=== PATIENT | male | born 1945 | race Caucasian/White ===

== ENCOUNTER 2023-04-20 12:41 | Outpatient (CLI) | payer MEDICARE, OTHER, SELFPAY ==
[2023-04-20 13:12] VITALS: BP 161/70; PULSE 72; RESP 14; TEMP 36.6; O2SAT 99
[2023-04-20] MEDS: SODIUM CHLORIDE 0.9% IVPB (13:30)
[2023-04-20] MEDS: ZOLEDRONIC ACID IVPB (13:30)
[2023-04-20] MEDS: LEUPROLIDE ACETATE (ELIGARD) 22.5 MG SYRINGE SUB-Q (13:37)
--- NOTE | 2023-04-20 13:53 | PC.NURSE ---
Patient here for q 3 months Reclast and Lupron. Saw oncologist Glenn 04/18/23 in [place]-labs done there and reviewed and ok'd. Education given. Reclast infusion and Lupron injection administered. Tolerated well. Safe exit of hospital per self/ambulatory. Will return 2022 after see oncologist and labs done.
== END 2023-04-20 12:42 | disposition home or self-care (01) ==
LOC: CHSTREATRM 12:44
PROVIDERS: PCP Family Medicine; Visit Provider Internal Medicine Hematology
DX: Z51.11 Encounter for antineoplastic chemotherapy (principal); C61 Malignant neoplasm of prostate
CPT/HCPCS: 96374; 96401; J3489; J9217

== ENCOUNTER 2023-08-02 13:53 | Outpatient (CLI) | payer MEDICARE, OTHER, SELFPAY ==
[2023-08-02 14:21] LABS: Basophils Absolute Auto 0.05 K/mm3 (0.00-0.10); Basophils Percent Auto 0.7 % (0.0-1.0); Eosinophils Absolute Auto 0.45 K/mm3 (0.02-0.50); Eosinophils Percent Auto 6.6 % (1.0-6.0); Hematocrit 40.9 % (37.0-46.0); Immature Granulocyte Absolute 0.07 K/mm3 (0.00-0.00); Lymphocytes Absolute Auto 1.44 K/mm3 (1.10-4.50); Lymphocytes Percent Auto 21.1 % (18.0-42.0); Mean Corpuscular HGB Conc 31.8 g/dL (32.0-36.0); Mean Corpuscular Hemoglobin 26.6 pg (27.0-31.0); Mean Corpuscular Volume 83.6 fL (78.0-102.0); Mean Platelet Volume 8.8 fl (8.7-11.0); Monocytes Absolute Auto 0.54 K/mm3 (0.10-0.90); Monocytes Percent Auto 7.9 % (2.0-11.0); Neutrophils Absolute Auto 4.3 K/mm3 (1.7-7.2); Neutrophils Percent Auto 62.7 % (50.0-70.0); Platelet Count Result 243 K/mm3 (150-420); Red Blood Count 4.89 M/mm3 (4.70-6.10); Red Cell Distribution Width 16.4 % (11.6-14.4); White Blood Count 6.8 K/mm3 (4.8-10.8)
[2023-08-02 14:22] VITALS: BP 153/71; PULSE 72; RESP 14; TEMP 36.6; O2SAT 97; BMI 27.0
[2023-08-02 14:31] LABS: Estimated CRCL calculation 51 ml/min; Estimated Glomerular Filt Rate > 60
[2023-08-02] MEDS: ZOLEDRONIC ACID IVPB (15:05)
[2023-08-02] MEDS: SODIUM CHLORIDE 0.9% IVPB (15:05)
[2023-08-02 15:10] LABS: Alanine Aminotransferase 15 U/L (16-63); Alkaline Phosphatase 65 U/L (46-116); Anion Gap 8 mmol/L (8-16); Aspartate Amino Transferase < 10 U/L (15-37); Bilirubin,Total 0.3 mg/dL (0.00-1.00); Blood Urea Nitrogen 16 mg/dL (7-18); Calcium 9.3 mg/dL (8.5-10.1); Carbon Dioxide 29 mmol/L (21-32); Chloride 102 mmol/L (98-108); Estimated CRCL calculation 52 ml/min; Estimated Glomerular Filt Rate > 60; Ferritin 93 ng/mL (26-388); Glucose 106 mg/dL (70-99); Iron 57 ug/dL (65-175); Osmolality Calculated 289 mOsm/kg (285-295); Percent Iron Saturation 15 % (12-57); Potassium 4.5 mmol/L (3.5-5.1); Sodium 139 mmol/L (136-145); Total Protein 7.3 g/dL (6.4-8.2)
[2023-08-02 15:11] LABS: Prostate Specific Antigen < 0.1 ng/mL (< OR = 4.0)
[2023-08-02] MEDS: LEUPROLIDE ACETATE (ELIGARD) 22.5 MG SYRINGE SUB-Q (15:13)
--- NOTE | 2023-08-02 15:28 | PC.NURSE ---
Patient here for Eligard injection and Zoledronic acid IV infusion. Labs reviewed and ok'd. Zoledronic infusion dosed on creatinine clearance. Injection and infusion administered. SEE MAR. Tolerated well. Safe exit of hospital per self/ambulatory. Will return 11/01/23 at 1300 for next injection/infusion.
[2023-08-06 12:59] LABS: Testosterone Free 2.4 pg/mL (30.0-135.0); Testosterone Total 16 ng/dL (250-1100)
== END 2023-08-02 13:54 | disposition home or self-care (01) ==
PROVIDERS: PCP Family Medicine; Visit Provider Internal Medicine Hematology
DX: Z51.11 Encounter for antineoplastic chemotherapy (principal); C61 Malignant neoplasm of prostate
CPT/HCPCS: 36415; 80053; 82728; 83540; 83550; 84153; 84402; 84403; 85025; 96365; 96402; J3489; J9217

== ENCOUNTER 2023-11-01 12:03 | Outpatient (CLI) | payer MEDICARE, OTHER, SELFPAY ==
[2023-11-01 12:31] LABS: Basophils Absolute Auto 0.07 K/mm3 (0.00-0.10); Basophils Percent Auto 0.7 % (0.0-1.0); Eosinophils Absolute Auto 0.64 K/mm3 (0.02-0.50); Eosinophils Percent Auto 6.8 % (1.0-6.0); Hematocrit 38.4 % (37.0-46.0); Hemoglobin 12.4 g/dL (12.4-15.3); Immature Granulocyte Absolute 0.16 K/mm3 (0.00-0.00); Immature Granulocyte Percent A 1.7 % (0.0-0.0); Lymphocytes Percent Auto 15.9 % (18.0-42.0); Mean Corpuscular HGB Conc 32.3 g/dL (32-36); Mean Corpuscular Hemoglobin 26.8 pg (27.0-31.0); Mean Corpuscular Volume 82.9 fL (78.0-102.0); Mean Platelet Volume 8.4 fl (8.7-11.0); Monocytes Absolute Auto 0.81 K/mm3 (0.10-0.90); Monocytes Percent Auto 8.6 % (2.0-11.0); Neutrophils Absolute Auto 6.24 K/mm3 (1.70-7.20); Neutrophils Percent Auto 66.3 % (50.0-70.0); Platelet Count Result 261 K/mm3 (150-420); Red Blood Count 4.63 M/mm3 (4.70-6.10); White Blood Count 9.4 K/mm3 (4.8-10.8)
[2023-11-01 12:47] VITALS: BP 100/59; PULSE 80; RESP 16; TEMP 36.6; O2SAT 97; BMI 25.7
[2023-11-01 13:04] LABS: Alanine Aminotransferase 13 U/L (16-63); Albumin Level 3.5 g/dL (3.4-5.0); Alkaline Phosphatase 95 U/L (46-116); Anion Gap 11 mmol/L (8-16); Aspartate Amino Transferase < 10 U/L (15-37); Bilirubin,Total 0.6 mg/dL (0.00-1.00); Blood Urea Nitrogen 18 mg/dL (7-18); Calcium 9.5 mg/dL (8.5-10.1); Carbon Dioxide 26 mmol/L (21-32); Chloride 104 mmol/L (98-108); Estimated CRCL calculation 40 ml/min; Estimated Glomerular Filt Rate 48; Glucose 123 mg/dL (70-99); Osmolality Calculated 294 mOsm/kg (285-295); Potassium 5.1 mmol/L (3.5-5.1); Sodium 141 mmol/L (136-145); Total Protein 7.3 g/dL (6.4-8.2)
[2023-11-01 13:15] LABS: Prostate Specific Antigen < 0.1 ng/mL (< OR = 4.0)
[2023-11-01] MEDS: SODIUM CHLORIDE 0.9% IVPB (13:20)
[2023-11-01] MEDS: ZOLEDRONIC ACID IVPB (13:20)
[2023-11-01] MEDS: LEUPROLIDE ACETATE (ELIGARD) 22.5 MG SYRINGE SUB-Q (13:29)
--- NOTE | 2023-11-01 13:56 | PC.NURSE ---
Patient here for q 3 month Leuprolide injection and Zoledronic acid infusion. Just came from seeing Dr. Kelly-oncologist. No concerns voice. Injection and infusion administered. See MAR. Tolerated well. Will return February 01, 2024 at 1300 for next infusion and injection. Will see Dr. Kelly prior. Safe exit of hospital per self ambulatory.
== END 2023-11-01 13:55 | disposition home or self-care (01) ==
LOC: CHSTREATRM 12:06
PROVIDERS: PCP Family Medicine; Visit Provider Internal Medicine Hematology
DX: Z51.11 Encounter for antineoplastic chemotherapy (principal); C61 Malignant neoplasm of prostate
CPT/HCPCS: 36415; 80053; 84153; 85025; 96374; 96402; J3489; J9217

== ENCOUNTER 2024-01-17 10:52 | Outpatient (CLI) | payer MEDICARE, SELFPAY ==
[2024-01-17 12:28] LABS: Cholesterol 153 mg/dL (0-200); Estimated Glomerular Filt Rate 54; HDL Direct 40 mg/dL (40-60); LDL Cholesterol Calculated 85 mg/dL (<130); Triglycerides 138 mg/dL (0-150)
[2024-01-17 12:29] LABS: Prostate Specific Antigen < 0.1 ng/mL (< OR = 4.0)
== END 2024-01-17 10:53 | disposition home or self-care (01) ==
LOC: CHSLAB 10:58
PROVIDERS: PCP Family Medicine; Visit Provider Internal Medicine Hematology
DX: Z12.5 Encounter for screening for malignant neoplasm of prostate (principal); C61 Malignant neoplasm of prostate; R73.01 Impaired fasting glucose; Z13.6 Encounter for screening for cardiovascular disorders
CPT/HCPCS: 36415; 80061; 82565; 83036; 84153

== ENCOUNTER 2024-01-31 09:45 | Outpatient (CLI) | payer MEDICARE, OTHER, SELFPAY ==
--- NOTE | 2024-01-31 09:55 | PC.NURSE ---
Here for infusion
[2024-01-31 10:17] LABS: Estimated Glomerular Filt Rate > 60
[2024-01-31 10:20] VITALS: BP 147/74; PULSE 76; RESP 18; TEMP 36.1
[2024-01-31 10:21] VITALS: BMI 24.6
--- NOTE | 2024-01-31 10:22 | PC.NURSE ---
creatinine reported to pharmacy for dosing 1.10
[2024-01-31] MEDS: SODIUM CHLORIDE 0.9% IVPB (10:54)
[2024-01-31] MEDS: ZOLEDRONIC ACID IVPB (10:54)
[2024-01-31] MEDS: LEUPROLIDE ACETATE (ELIGARD) 22.5 MG SYRINGE SUB-Q (11:03)
[2024-01-31 11:20] VITALS: BP 165/80; PULSE 78
--- NOTE | 2024-01-31 11:30 | PC.NURSE ---
discharged to home, discharge papers reviewed, no questions
== END 2024-01-31 09:46 | disposition home or self-care (01) ==
PROVIDERS: PCP Family Medicine; Visit Provider Internal Medicine Hematology
DX: Z51.11 Encounter for antineoplastic chemotherapy (principal); C61 Malignant neoplasm of prostate
CPT/HCPCS: 36415; 82565; 96365; 96402; J3489; J9217

== ENCOUNTER 2024-05-01 12:56 | Outpatient (CLI) | payer MEDICARE, OTHER, SELFPAY ==
[2024-05-01 13:22] LABS: Estimated Glomerular Filt Rate > 60
[2024-05-01 13:43] VITALS: BP 129/77; PULSE 68; RESP 16; TEMP 36.6; O2SAT 97
[2024-05-01 13:51] LABS: Prostate Specific Antigen < 0.1 ng/mL (< OR = 4.0)
[2024-05-01] MEDS: LEUPROLIDE ACETATE (ELIGARD) 22.5 MG SYRINGE SUB-Q (14:33)
[2024-05-01] MEDS: SODIUM CHLORIDE 0.9% IVPB (14:34)
[2024-05-01] MEDS: ZOLEDRONIC ACID IVPB (14:34)
--- NOTE | 2024-05-01 15:12 | PC.NURSE ---
Patient here for every 3 months leuprolide injection and Zoledronic acid infusion. Education given. All concerns voiced answered. Medication administered. SEE MAR/patient care notes. Tolerated well.
[2024-05-01 15:15] VITALS: BP 121/74; PULSE 72; RESP 14; O2SAT 97
[2024-05-01 15:30] LABS: Iron 59 ug/dL (65-175); Percent Iron Saturation 20 % (12-57)
== END 2024-05-01 12:57 | disposition home or self-care (01) ==
PROVIDERS: PCP Family Medicine; Visit Provider Internal Medicine Hematology
DX: Z51.11 Encounter for antineoplastic chemotherapy (principal); C61 Malignant neoplasm of prostate
CPT/HCPCS: 36415; 82565; 83540; 83550; 84153; 96374; 96402; J3489; J9217

== ENCOUNTER 2024-08-05 12:52 | Outpatient (CLI) | payer MEDICARE, OTHER, SELFPAY ==
[2024-08-05 13:25] VITALS: BMI 25.1
[2024-08-05 13:29] VITALS: BP 121/66; PULSE 77; RESP 18; TEMP 36.5; O2SAT 98
[2024-08-05 13:44] LABS: Estimated CRCL calculation 58 ml/min; Estimated Glomerular Filt Rate > 60
[2024-08-05 13:56] LABS: Prostate Specific Antigen < 0.1 ng/mL (< OR = 4.0)
[2024-08-05] MEDS: ZOLEDRONIC ACID IVPB (14:25)
[2024-08-05] MEDS: SODIUM CHLORIDE 0.9% IVPB (14:25)
--- NOTE | 2024-08-05 14:45 | PC.NURSE ---
Patient tolerated infusion well. Denies any questions or needs at this time. Left floor ambulatory. IV site removed, tip intact. Dressing applied to site.
== END 2024-08-05 14:45 | disposition home or self-care (01) ==
PROVIDERS: PCP Family Medicine; Visit Provider Internal Medicine Hematology
DX: C61 Malignant neoplasm of prostate (principal)
CPT/HCPCS: 36415; 82565; 84153; 96374; J3489

== ENCOUNTER 2024-10-30 13:05 | Outpatient (CLI) | payer MEDICARE, OTHER, SELFPAY ==
[2024-10-30 13:49] LABS: Estimated Glomerular Filt Rate > 60
[2024-10-30 13:50] LABS: Prostate Specific Antigen < 0.1 ng/mL (< OR = 4.0)
[2024-10-30 14:35] VITALS: BP 132/80; PULSE 68; RESP 14; TEMP 36.7; O2SAT 97; BMI 25.1
[2024-10-30] MEDS: SODIUM CHLORIDE 0.9% IVPB (14:35)
[2024-10-30] MEDS: ZOLEDRONIC ACID IVPB (14:35)
--- OUTSIDE RECORDS SUMMARY | 2024-10-30 14:35 | XMS_ITS | Clinical Summary ---
Author Organization [facility] Address [facility] [place] [address] Care Team Providers Care Coil Wrapper Name Role Phone Alexandre Guzmán MD Primary Care Provider Lesli Paz MD Unavailable Stanley Yen MD Unavailable [phone] Indio Alicea MD Unavailable [phone] Kenzie Cadena MD Unavailable Allergies No known active allergies Medications rosuvastatin 40 MG tablet Take 1 tablet (40 mg total) by mouth nightly at bedtime. Active aspirin 81 MG chewable tablet Chew 1 tablet (81 mg total) by mouth daily. Active enzalutamide (XTANDI) 80 MG tablet Take 2 tablets by mouth daily. Active carvedilol (COREG) 3.125 MG tablet Take 1 tablet (3.125 mg total) by mouth 2 (two) times daily. 60 tablet 11 3 Active nitroglycerin (NITROSTAT) 0.[address] 1 tablet (0.4 mg total) under the tongue every 5 (five) minutes as needed for Chest Pain. Not to exceed 3 tablets. 25 tablet 4 Active clopidogrel (PLAVIX) 75 MG tablet take 1 tablet by mouth every day 90 tablet 3 4 Active Additional Information Patient taking differently: On hold for surgery , Reported on 08/26/2024 venlafaxine XR (EFFEXOR-XR) 37.5 MG 24 hr capsule Take 1 capsule (37.5 mg total) by mouth daily. Active leuprolide acetate, 3 Month, (LUPRON DEPOT, 3-MONTH,) 22.5 MG injection Inject 22.5 mg into the muscle every 3 (three) months. Active pantoprazole EC (PROTONIX) 40 MG tablet Take 1 tablet (40 mg total) by mouth daily. 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 Unstable angina ([facility]) 05/02/2021 Prostate cancer ([facility]) 12/16/2019 Paroxysmal atrial fibrillation ([facility]) 12/04/2019 S/P atrioventricular lance ablation 07/03/2019 New onset atrial fibrillation ([facility]) 05/29/2019 Dizziness 01/16/2019 CAD (coronary artery disease) 01/16/2019 Hypertension, unspecified type 01/16/2019 Hyperlipidemia 01/16/2019 Resolved Problems Problem Noted Date Diagnosed Date Resolved Date Preoperative clearance 12/04/201904/24 Encounters Date Type Department Care Team Description 08/26/2024 8:45 AM [facility] [place] [address] Lesli Paz MD Heart Problem 08/26/2024 8:29 AM MEDICAL SALES CONSULTANT - 08/26/2024 11:59 PM [facility] Hospital Encounter [facility] [address] [place] [address] [place] [address] Lesli Paz MD Discharge Disposition: Home or Self Care (Routine Discharge) 08/26/2024 Travel 08/23/2024 Orders Only [facility] [address] [place] [address] Lesli Paz MD 08/21/2024 9:00 AM MEDICAL SALES CONSULTANT - 08/21/2024 11:59 PM [facility] [facility] [place] [address] Lesli Paz MD Discharge Disposition: Home or Self Care (Routine Discharge) 08/21/2024 Travel from Last 3 Months Immunizations Name Administration Dates Next Due Afluria 36 MONTHS+ (Prefille d Syringe IIV4) 07/04/2019 Fluzone 6 Months+ Quad (0.5 mL Prefilled Syringe) 05/03/2021,05/02/2021(Deferred: Other - to be given upon discharge) Pneumococcal (Pneumovax 23) 05/03/2021 Family History Medical History Relation Comments Cancer Father Stroke Mother Relation Status Comments Father (Age 86) Mother (Age 82) Social History Tobacco Use Types Packs/Day Years Used Date Smoking Tobacco: Never Smokeless Tobacco: Never Alcohol Use Standard Drinks/Week Comments No 0 (1 standard drink = 0.6 oz pur e alcohol) Humiliation, Afraid, Rape, and Kick questionnair e Answer Date Recorded Within the last year, have y ou been afraid of your partner or ex-partner? No 03/22/2023 Within the last year, have y ou been humiliated or emotionally abused in other ways by your partner or ex-partner? No Within the last year, have y ou been kicked, hit, slapped, or otherwise physically hurt by your partner or ex-partner? No 03/22/2023 Within the last year, have y ou been raped or forced to have any kind of sexual activity by your partner or ex-partner? No 03/22/2023 AUDIT-C Answer Date Recorded Frequency of Alcohol Consumption Never 05/21/2018 Average Number of Drinks Not on file 018 Frequency of Binge Drinking Not on file 03/2018 Overall Financial Resource Strain (CARDIA) Answe r Date Recorded How hard is it for you to pa y for the very basics like food, housing, medical care, and heating? Not hard at all 03/22/2023 Hunger Vital Sign Answer Date Recorded Within the past 12 months, y ou worried that your food would run out before you got the money to buy more. Never true 03/22/20 23 Within the past 12 months, t he food you bought just didn't last and you didn't have money to get more. Never true 03/22/2023 PRAPARE - Transportation Answer Date Re corded In the past 12 months, has l ack of transportation kept you from medical appointments or from getting medications? No 04/2023 In the past 12 months, has l ack of transportation kept you from meetings, work, or from getting things needed for daily living? No 03/22/2023 Housing Stability Vital Sign Answer Mann e Recorded In the last 12 months, was t here a time when you were not able to pay the mortgage or rent on time? No 03/22/2023 In the last 12 months, how many places have you lived? 1 03/22/2023 In the last 12 months, was t here a time when you did not have a steady place to sleep or slept in a assisted (including now)? No 03/22/2023 Sex and Gender Information Value Date Recorded Sex Assigned at Male 08/30/2024 4:08 PM MEDICAL SALES CONSULTANT Legal Sex Male 2:22 PM CDT Gender Identity Not on file Sexual Orientation Not on file Occupation Industry Job Start Date Job End Date Not on file Not on file Not on file Not on file Last Filed Vital Signs Vital Sign Reading Time Taken Comments Blood Pressure 134/70 08/26/2024 9:54 AM MEDICAL SALES CONSULTANT Pulse 78 08/26/2024 9:53 AM MEDICAL SALES CONSULTANT Temperature 36 C (96.8 F) 02/14/2024 5:28 PM CDT Respiratory Rate 16 08/26/2024 9:53 AM MEDICAL SALES CONSULTANT Oxygen Saturation 97% 02/14/2024 5:28 PM CDT Inhaled Oxygen Concentration - - Weight 81.6 kg (180 lb) 08/26/2024 9:53 AM MEDICAL SALES CONSULTANT Height 177.8 cm (5' 10 ) 08/26/2024 9:53 AM MEDICAL SALES CONSULTANT Body Mass Index 25.83 08/26/2024 9:53 AM MEDICAL SALES CONSULTANT Plan of Treatment Upcoming Encounters Date Type Department Care Team (Late st Contact Info) Description 08/20/2025 9:00 AM MEDICAL SALES CONSULTANT [facility]ointment [facility] [address] [place] [address] Lesli Paz MD [address] [place], [place] [id number] 08/20/2025 10:00 AM MEDICAL SALES CONSULTANT [facility]ointment [facility] [address] [place] [address] Lesli Paz MD [address] [place] [address] 08/25/2025 9:00 AM MEDICAL SALES CONSULTANT Office Visit [facility] [place] [phone] Lesli Paz MD [address] [place] [address] Health Maintenance Due Date Last Done Comments ASCVD Statin 1945 Hepatitis C 1964 DTaP, Tdap and Td Vaccines (1 - Tdap) 1965 Zoster Vaccines (1 of 2) 1996 Annual Medicare Wellness Visit 2011 RSV Immunization or 60+ Years (1 - 1-dose 75+ series) 2021 Pneumococcal Vaccine: 65+ Years (2 of 2 - PCV) 05/03/2022 05/03/2021 ASCVD LDL 03/26/2024 03/26/2023, 04/14, 02/05/2021, Additional history exists COVID-19 Vaccine ( season) 2024 05/28/2021, 10/23/2020, 10/02/2020 Influenza Adult (#1) 2024 05/03/2021, 07/04/2019, 05/28/2018 Colorectal Cancer Screening Colonoscopy (10 Years) Discontinued 08/24/2021, 08/24/2021 Meningococcal B Vaccine Aged Out No l onger eligible based on patient's age to complete this topic Meningococcal Vaccine Aged Out No isma morelia eligible based on patient's age to complete this topic RSV Immunizations Under 20 Months Aged Out No longer eligible based on patient's age to complete this topic Goals Goal Patient Goal Type Associated Problems Recent Progress Patient-Stated? Author Safety Patient/family will have appropriate support at home upon discharge Lifestyle No Razia Carmona RN Medical Devices Implanted Type Area Environmental Programs Manager Device Identifier Shelf Expiration Date Model / Serial / Lot Balloon Ams Pressure Regulating 61-70cm - [id number] Implanted:Qty: 1 on 02/14/2024 by Kenzie Cadena MD at [facility] Balloon Implant N/A: Pelvis [employer] [id number] 01/02/2029 [id number] / / [id number] Cuff Urethral Ams 800 Occlusive Urinary Control System Inhibizone Silicone Elastomer 4cm Sphincter Sterile - [id number] Implanted:Qty: 1 on 02/14/2024 by Kenzie Cadena MD at [facility] Penile N/A: Urethra [employer] [id number] 10/24/2025 [id number] / / [id number] Pump Control With Iz Ams 800 - [id number] Implanted:Qty: 1 on 02/14/2024 by Kenzie Cadena MD at [facility] Penile N/A: Scrotum [employer] [id number] 12/28/2025 [id number] / / [id number] Kit Accessory Ams 800 - [id number] Implanted:Qty: 1 on 02/14/2024 by Kenzie Cadena MD at [facility] Penile N/A: Abdomen [employer] [id number] 01/17/2029 [id number] / / [id number] Tissue Surgiflo 8ml - Sn/A Implanted:Qty: 1 on 12/16/2019 by Manasa Mendoza MD at [facility] N/A: Prostate [employer] 03/13/2021 [id number] / N/A / [id number] Procedures Procedure Name Priority Date/Time Associated Diagnosis Comments ECG 12-LEAD Routine 08/26/2024 8:35 AM MEDICAL SALES CONSULTANT Coronary artery disease involving [place] coronary artery of [place] heart with unstable angina pectoris ([facility]) USV CAROTID DUPLEX CORRIE Routine 08/21/2024 10:56 AM MEDICAL SALES CONSULTANT Bilateral carotid artery stenosis LIPID PANEL Routine 03/26/2023 8:13 AM CDT COLONOSCOPY 08/24/2021 8:49 AM MEDICAL SALES CONSULTANT from Last 3 Months or Most Recently Relevant to Health Maintenance Results * ECG 12 lead (HOSPITAL PERFORMED ONLY) (08/26/2024 8:35 AM MEDICAL SALES CONSULTANT) 08/26/2024 8:35 AM MEDICAL SALES CONSULTANT Narrative [facility] - 08/26/2024 6:20 PM MEDICAL SALES CONSULTANT [address] [place] [address] Test Date: 2024-08-26 Pat Name: PEPE BALLOX Department: 3 Room: Gender: Male Curator: : 1945 Requested By: LESLI PAZ Order Number: [id number] Reading MD: Lesli Paz Measurements Intervals [place] Rate: 74 P: 4 DE: 182 QRS: 44 QRSD: 111 T: 0 QT: 426 QTc: 475 Interpretive Statements SINUS RHYTHM INCOMPLETE RIGHT BUNDLE BRANCH BLOCK [90+ ms QRS DURATION, TERMINAL R IN V1/V2, 40+ ms S IN I/aVL/V4/V5/V6] VOLTAGE CRITERIA FOR LVH [MEETS CRITERIA IN ONE OF: R(aVL), S(V1), R(V5), R(V5/V6)+S(V1)] INFERIOR MYOCARDIAL INFARCTION , PROBABLY OLD [40+ ms Q WAVE AND/OR ST/T ABNORMALITY IN II/aVF] CAL SALES CONSULTANT Procedure Note Lesli Paz MD - 08/26/[address] [place] [address] Test Date: 2024-08-26 Pat Name: PEPE BALLOX Department: 3 Room: Gender: Male Curator: : 1945 Requested By: LESLI PAZ Order Number: [id number] Reading MD: Lesli Paz Measurements Intervals [place] Rate: 74 P: 4 DE: 182 QRS: 44 QRSD: 111 T: 0 QT: 426 QTc: 475 Interpretive Statements SINUS RHYTHM INCOMPLETE RIGHT BUNDLE BRANCH BLOCK [90+ ms QRS DURATION, TERMINAL RIN V1/V2, 40+ ms S IN I/aVL/V4/V5/V6] VOLTAGE CRITERIA FOR LVH [MEETS CRITERIA IN ONE OF: R(aVL), S(V1),R(V5), R(V5/V6)+S(V1)] INFERIOR MYOCARDIAL INFARCTION , PROBABLY OLD [40+ ms Q WAVE AND/OR ST/T ABNORMALITY IN II/aVF] CAL SALES CONSULTANT us Lesli Paz MD ECG ORDERABLES Final Result [facility] * USV CAROTID DUPLEX CORRIE (08/21/2024 10:56 AM MEDICAL SALES CONSULTANT) Anatomical Region Laterality Modality Neck Ultrasound 08/21/2024 9:14 AM MEDICAL SALES CONSULTANT Narrative 08/21/2024 5:29 PM MEDICAL SALES CONSULTANT Outreach Carotid Ultrasound Vascular Report Pat.Name: Pepe Gaines Pat.ID: [id number] St.Date: 08/21/2024 Refer.MD: Sarah, [facility] Exam Time: 9:14:00 AM Study Type:OUTREACH CAROTID SCAN BILATERAL Height: 70 in Age: 1 1945,78Y Sex: M Sonogrphr: Am Pat. Stat.:Outpatient Reason for Study:Bilateral carotid artery stenosis Procedures: Study performed at [place], [place] and interpreted by [facility]. ++++++++++++++++++++++++++++++++++++ FINDINGS: ++++++++++++++++++++++++++++++++++++ Rt ICA: 0-39% stenosis with plaque noted in the internal carotid artery. Moderate homogeneous plaque noted. Rt ECA: Patent with antegrade flow noted in the external carotid artery. Rt Vert: Normal antegrade vertebral flow. Lt ICA: 40-59% stenosis noted in the internal carotid artery. Moderate homogeneous plaque noted. Lt ECA: Patent with antegrade flow noted in the external carotid artery. Lt Vert: Normal antegrade vertebral flow. ++++++++++++++++++++++++++++++++++++ MEASUREMENTS: ++++++++++++++++++++++++++++++++++++ DOPPLER Right Prox CCA Prox CCA PSV 88 cm/s Prox CCA EDV 13 cm/s Right Dist CCA Dist CCA PSV 77 cm/s Dist CCA EDV 12 cm/s Right Prox ICA Prox ICA PSV 101 cm/s Prox ICA EDV 28 cm/s Right Mid ICA Mid ICA PSV 76 cm/s Mid ICA EDV 19 cm/s Right Dist ICA Dist ICA PSV 97 cm/s Dist ICA EDV 28 cm/s Right Prox ECA Prox ECA PSV 60 cm/s Right Bifurcation Bifurcation PSV 62 cm/s Bifurcation EDV 13 cm/s Right Vertebral Vertebral PSV 61 cm/s Vertebral EDV 17 cm/s Right ICA/CCA RATIO ICA/CCA RATIO P 1.31 Left Prox CCA Prox CCA PSV 97 cm/s Prox CCA EDV 13 cm/s Left Dist CCA Dist CCA PSV 77 cm/s Dist CCA EDV 17 cm/s Left Prox ICA Prox ICA PSV 86 cm/s Prox ICA EDV 22 cm/s Left Mid ICA Mid ICA PSV 120 cm/s Mid ICA EDV 34 cm/s Left Dist ICA Dist ICA PSV 83 cm/s Dist ICA EDV 26 cm/s Left Prox ECA Prox ECA PSV 98 cm/s Left Bifurcation Bifurcation PSV 83 cm/s Bifurcation EDV 18 cm/s Left Vertebral Vertebral PSV 27 cm/s Vertebral EDV 10 cm/s Left ICA/CCA RATIO ICA/CCA RATIO P 1.56 <Electronic Signature> 08/21/2024 05:29 PM Lesli Paz M.D. Procedure Note Lesli Paz MD - 08/21/2024 Outreach Carotid Ultrasound Vascular Report Pat.Name: Pepe Gaines Pat.ID: [id number] .Date: 08/21/2024 Refer.MD: Sarah, [facility] Exam Time: 9:14:00 AM Study Type:OUTREACH CAROTID SCAN BILATERAL Height: 70 in Age: 1 1945,78Y Sex: M Sonogrphr: Am Pat. Stat.:Outpatient Reason for Study:Bilateral carotid artery stenosis Procedures: Study performed at [facility], [place], [place] and interpreted by [facility]. ++++++++++++++++++++++++++++++++++++ FINDINGS: ++++++++++++++++++++++++++++++++++++ Rt ICA: 0-39% stenosis with plaque noted in the internal carotid artery. Moderate homogeneous plaque noted. Rt ECA: Patent with antegrade flow noted in the external carotid artery. Rt Vert: Normal antegrade vertebral flow. Lt ICA: 40-59% stenosis noted in the internal carotid artery. Moderate homogeneous plaque noted. Lt ECA: Patent with antegrade flow noted in the external carotid artery. Lt Vert: Normal antegrade vertebral flow. ++++++++++++++++++++++++++++++++++++ MEASUREMENTS: ++++++++++++++++++++++++++++++++++++ DOPPLER Right Prox CCA Prox CCA PSV 88 cm/s Prox CCA EDV 13 cm/s Right Dist CCA Dist CCA PSV 77 cm/s Dist CCA EDV 12 cm/s Right Prox ICA Prox ICA PSV 101 cm/s Prox ICA EDV 28 cm/s Right Mid ICA Mid ICA PSV 76 cm/s Mid ICA EDV 19 cm/s Right Dist ICA Dist ICA PSV 97 cm/s Dist ICA EDV 28 cm/s Right Prox ECA Prox ECA PSV 60 cm/s Right Bifurcation Bifurcation PSV 62 cm/s Bifurcation EDV 13 cm/s Right Vertebral Vertebral PSV 61 cm/s Vertebral EDV 17 cm/s Right ICA/CCA RATIO ICA/CCA RATIO P 1.31 Left Prox CCA Prox CCA PSV 97 cm/s Prox CCA EDV 13 cm/s Left Dist CCA Dist CCA PSV 77 cm/s Dist CCA EDV 17 cm/s Left Prox ICA Prox ICA PSV 86 cm/s Prox ICA EDV 22 cm/s Left Mid ICA Mid ICA PSV 120 cm/s Mid ICA EDV 34 cm/s Left Dist ICA Dist ICA PSV 83 cm/s Dist ICA EDV 26 cm/s Left Prox ECA Prox ECA PSV 98 cm/s Left Bifurcation Bifurcation PSV 83 cm/s Bifurcation EDV 18 cm/s Left Vertebral Vertebral PSV 27 cm/s Vertebral EDV 10 cm/s Left ICA/CCA RATIO ICA/CCA RATIO P 1.56 <Electronic Signature> 08/21/2024 05:29 PM Lesli Paz M.D. Lesli Paz MD [facility] Final Result * LIPID PANEL (03/26/2023 8:13 AM CDT) CHOLESTEROL 131 MG/DL 03/26/2023 8:56 AM CDT [facility] Comment:DESIRABLE: <200 TRIGLYCERIDES 118 MG/DL 03/26/2023 8:56 AM CDT [facility] Comment:<150 NORMAL HDL 47 >39 MG/DL 03/26/2023 8:56 AM CDT [facility] LDL (CALCULATED) 60 MG/DL 03/26/20 8:56 AM CDT [facility] Comment:<100 OPTIMAL VLDL CALCULATION 24 MG/DL 03/26/20 8:56 AM CDT [facility] Comment:REFERENCE RANGE NOT ESTABLISHED CHOL/HDL RATIO 2.8 03/26/2023 8:56 AM CDT [facility] Comment:REFERENCE RANGE NOT ESTABLISHED LDL/HDL 1.3 03/26/2023 8:56 AM CDT [facility] Comment:REFERENCE RANGE NOT ESTABLISHED NON HDL CHOLESTEROL 84 MG/DL 03/26/2023 8:56 AM CDT [facility] Comment:REFERENCE RANGE NOT ESTABLISHED 03/26/2023 8:13 AM CDT Adalid Colon MD LABORATORY Final Resul t [facility] [address] [place] [address], [id number] * COLONOSCOPY (08/24/2021 8:49 AM MEDICAL SALES CONSULTANT) Indio Alicea MD GI PROCEDURE ORDERABLES Final Result from Last 3 Months or Most Recently Relevant to Health Maintenance Insurance [address] [id number] MEDICARE [id number] MEDICARE [id number] Advance Directives * Full Code (Latest Code Status on File) Date Activated Date Inactivated Comments 03/27/2023 1:44 PM 04/02/2023 2:57 PM * Full Code Date Activated Date Inactivated Comments 03/21/2023 4:35 PM 03/27/2023 1:44 PM * Full Code Date Activated Date Inactivated Comments 05/02/2021 4:11 PM 05/03/2021 4:54 PM * Full Code Date Activated Date Inactivated Comments 05/02/2021 3:32 AM 05/02/2021 4:11 PM * Full Code Date Activated Date Inactivated Comments 12/16/2019 6:57 PM 12/21/2019 4:04 PM Care Teams Coil Wrapper Relationship Specialty Start Date End Date Alexandre Guzmán MD [address] [place] [address] PCP - General FAMILY PRACTICE 05/08/18 Lesli Paz MD [address] [place], [place] [phone] Consulting Physician CARDIOVASCULAR DISEASE 02/03/23 Stanley Yen MD [address] [place] [address] UROLOGY 08/31/23 Indio Alicea MD [address] [place] [address] FAMILY PRACTICE 09/26/23 Kenzie Cadena MD [address] [place] [phone] Consulting Physician UROLOGY 02/09/24
--- OUTSIDE RECORDS SUMMARY | 2024-10-30 14:35 | XMS_ITS | Encounter Summary ---
Author Organization [facility] Address [facility] [place] [address] Care Team Providers Care Diagnostic Radiologic Technologist Name Role Phone Alexandre Guzmán MD Primary Care Provider Dottie Kang MD Unavailable Stanley Yen MD Unavailable [phone] Indio Alicea MD Unavailable [phone] Kenzie Cadena MD Unavailable Reason for Visit * Reason Onset Date Comments Medication 09/26/2023 Encounter Details Date Type Department Care Team (Late st Contact Info) Description 09/26/2023 Telephone [facility] [address] [place] [address] Dottie Kang MD [address] [place] [address] Medication Social History Tobacco Use Types Packs/Day Years [...] place to sleep or slept in a group home (including now)? No 03/22/2023 Sex and Gender Information Value Date Recorded Sex Assigned at Male 08/30/2024 4:08 PM TOBACCO SWEEPER Legal Sex Male 2:22 PM CDT Gender Identity Not on file Sexual Orientation Not on file Occupation Industry Job Start Date Job End Date Not on file Not on file Not on file Not on file documented as of this encounter Functional Status * Are you deaf or do you have serious difficulty hearing Answer Date of Assessment Author Status No 04/02/2023 11:34 AM REINALDOT Kelli Cantrell RN Active * Are you blind or do you have serious difficulty seeing, even when wearing glasses? Answer Date of Assessment Author Status No 04/02/2023 11:34 AM Kelli Munoz RN Active * Do you have serious difficulty walking or climbing stairs? Answer Date of Assessment Author Status No 04/02/2023 11:34 AM Kelli Munoz RN Active * Do you have difficulty dressing or bathing? Answer Date of Assessment Author Status No 04/02/2023 11:34 AM Kelli Munoz RN Active * Because of a physical, mental, or emotional condition, do you have difficulty doing errands alone such as visiting a doctor's office or shopping? Answer Date of Assessment Author Status No 04/02/2023 11:34 AM Kelli Munoz RN Active documented as of this encounter Mental Status * Because of a physical, mental, or emotional condition, do you have serious difficulty concentrating, remembering, or making decisions? Answer Entry Date Author Status No 04/02/2023 11:34 AM Kelli Munoz RN Active documented in this encounter Progress Notes * Cabrera Kauffman LPN - 09/26/2023 1:03 PM CST Telephone giving pre-op info faxed. CCO SWEEPER * Bay Morales - 09/26/2023 11:37 AM CST CALLER: Daija porter/ 's office REASON FOR CALL: pt is needing to be scheduled for an EGD & colonoscopy. Daija porter/ 'soffice is asking for further instruction on pts blood thinners REQUEST HANDLED AND HOW: sent to nurse CCO SWEEPER documented in this encounter Plan of Treatment Upcoming Encounters Date Type Department Care Team (Late st Contact Info) Description 08/20/2025 9:00 AM [address]ACCO SWEEPER [address] [facility] [address] [place] [address] Dottie Kang MD [address] [place] [address] 08/20/2025 10:00 AM TOBACCO SWEEPER Appointment [facility] [address] [place] [address] Dottie Kang MD [address] [place] [address] 08/25/2025 9:00 AM TOBACCO SWEEPER Office Visit [facility] [address] [place] [phone] Dottie Kang MD [address] [place], [place] [phone] documented as of this encounter Goals Goal Patient Goal Type Associated Problems Recent Progress Patient-Stated? Author Safety Patient/family will have appropriate support at home upon discharge Lifestyle No Razia Carmona RN documented as of this encounter Visit Diagnoses Not on filedocumented in this encounter Care Teams Diagnostic Radiologic Technologist Relationship Specialty Start Date End Date Alexandre Guzmán MD [address] [place] [phone] PCP - General [facility] PR[facility] 05/08/18 Dottie Kang MD [address] [place] [address] Consulting Physician CARDIOVASCULAR DISEASE 02/03/23 Stanley Yen MD [address] [place] [address] UROLOGY 08/31/23 Indio Alicea MD [address] [place] [address] FAMILY PRACTICE 09/26/23 Kenzie Cadena MD [address] [place] [phone] Consulting Physician UROLOGY 02/09/24 documented as of this encounter
--- OUTSIDE RECORDS SUMMARY | 2024-10-30 14:35 | XMS_ITS | Encounter Summary ---
Author Organization [facility] Address [address] [place] [address] Care Team Providers Care Leak Detection Engineer Name Role Phone Alexandre Guzmán MD Primary Care Provider [phone] Lai Maldonado MD Unavailable Unavailable London Abdi MD Unavailable [phone] Dottie Kang MD Unavailable Stanley Yen MD Unavailable [phone] Indio Alicea MD Unavailable [phone] Kenzie Cadena MD Unavailable Encounter Details Date Type Department Care Team (Late st Contact Info) Description 01/19/2019 Abstract [facility] [address] [place] [address] , Generic Conversion, Social History Tobacco Use Types Packs/Day Years Used Date Smoking Tobacco: Never Smokeless Tobacco: Never Alcohol Use Standard Drinks/Week Comments No 0 (1 standard drink = 0.6 oz pur e alcohol) AUDIT-C Answer Date Recorded Frequency of Alcohol Consumption Never 05/21/2018 Average Number of Drinks Not on file 018 Frequency of Binge Drinking Not on file 03/2018 Sex and Gender Information Value Date Recorded Sex Assigned at Male 08/30/2024 4:08 PM CURRICULUM COUNSELOR Legal Sex Male 2:22 PM CDT Gender Identity Not on file Sexual Orientation Not on file documented as of this encounter Plan of Treatment Upcoming Encounters Date Type Department Care Team (Late st Contact Info) Description 08/20/2025 9:00 AM CURRICULUM COUNSELOR Appointment [facility] [address] [place] [address] Dottie Kang MD [address] [place] [address] 08/20/2025 10:00 AM CURRICULUM COUNSELOR [facility] [address] [place] [address] Dottie Kang MD [address] [place] [address] 08/25/2025 9:00 AM CURRICULUM COUNSELOR Office Visit [facility] [address] [place] [address] Dottie Kang MD [address] [place], [place] [address] documented as of this encounter Visit Diagnoses Not on filedocumented in this encounter Additional Health Concerns Infection Onset Date Last Indicated Resolved Time COVID-19 Rule Out 05/01/2021 05/01/2021 05/02/2021 12:32 AM CDT COVID-19 Rule Out 08/21/2021 08/21/2021 08/21/2021 8:20 PM CURRICULUM COUNSELOR documented as of this encounter Care Teams Leak Detection Engineer Relationship Specialty Start Date End Date Alexandre Guzmán MD [address] [place] [address] PCP - General FAMILY PRACTICE 05/08/18 Lai Maldonado [facility] [place] [address] CARDIOVASCULAR DISEASE 08/29/18 02/05/23 London Abdi MD [address] [place] [address] Consulting Physician CARDIAC ELECTROPHYSIOLOGY 06/04/19 02/05/23 Dottie Kang MD [address] [place] [address] Consulting Physician CARDIOVASCULAR DISEASE 02/03/23 Stanley Yen MD [address] [place] [address] UROLOGY 08/31/23 Indio Alicea MD [address] [facility] [place] [address] FAMILY PRACTICE 09/26/23 Kenzie Cadena MD [address] [place] [phone] Consulting Physician UROLOGY 02/09/24 documented as of this encounter
--- OUTSIDE RECORDS SUMMARY | 2024-10-30 14:35 | XMS_ITS | Encounter Summary ---
Author Organization [facility] Address [address] [place] [address] Care Team Providers Care Nursery Laborer Name Role Phone Alexandre Guzmán MD Primary Care Provider [phone] Lai Maldonado MD Unavailable Unavailable London Abdi MD Unavailable [phone] Dottie Kang MD Unavailable Stanley Yen MD Unavailable [phone] Indio Alicea MD Unavailable [phone] Kenzie Cadena MD Unavailable Encounter Details Date Type Department Care Team (Late st Contact Info) Description 05/05/2021 Hospital Follow-up Call [facility] [address] [place] [address] Solange Guzmán, RN Social History Tobacco Use Types Packs/Day Years [...] Sex Assigned at Male 08/30/2024 4:08 PM RETURN TO SERVICE INSPECTOR Legal Sex Male 2:22 PM CDT Gender Identity Not on file Sexual Orientation Not on file Occupation Industry Job Start Date Job End Date Not on file Not on file Not on file Not on file COVID-19 Exposure Response Date Recorded In the last month, have you been in contact with someone who was confirmed or suspected to have Coronavirus / COVID-19? No / Unsure 05/01/2021 9:54 PM CDT documented as of this encounter Functional Status * RETIRED Are you deaf or do you have serious difficulty hearing Answer Date of Assessment Author Status No 05/02/2021 4:00 AM CDT Activ e * RETIRED Are you blind or do you have serious difficulty seeing, even when wearing glasses? Answer Date of Assessment Author Status No 05/02/2021 4:00 AM CDT Activ e * Do you have serious difficulty walking or climbing stairs? Answer Date of Assessment Author Status No 05/02/2021 4:00 AM CDT Harish Llamas RN Active * Do you have difficulty dressing or bathing? Answer Date of Assessment Author Status No 05/02/2021 4:00 AM CDT Harish Llamas RN Active * Because of a physical, mental, or emotional condition, do you have difficulty doing errands alone such as visiting a doctor's office or shopping? Answer Date of Assessment Author Status No 05/02/2021 4:00 AM CDT Harish Llamas RN Active documented as of this encounter Mental Status * Because of a physical, mental, or emotional condition, do you have serious difficulty concentrating, remembering, or making decisions? Answer Entry Date Author Status No 05/02/2021 4:00 AM CDT Harish Llamas RN Active documented in this encounter Plan of Treatment Upcoming Encounters Date Type Department Care Team (Late st Contact Info) Description 08/20/2025 9:00 AM RETURN TO SERVICE INSPECTOR Appointment [facility] [address] [place] [address] Dottie Kang MD [address] [place] [address] 08/20/2025 10:00 AM RETURN TO SERVICE INSPECTOR [facility]ointment [facility] [address] [place] [address] Dottie Kang MD [address] [place] [address] 08/25/2025 9:00 AM RETURN TO SERVICE INSPECTOR Office Visit [facility] [address] [place] [address] Dottie Kang MD [address] [place], [place] [phone] documented as of this encounter Visit Diagnoses Not on filedocumented in this encounter Additional Health Concerns Infection Onset Date Last Indicated Resolved Time COVID-19 Rule Out 08/21/2021 08/21/2021 08/21/2021 8:20 PM RETURN TO SERVICE INSPECTOR documented as of this encounter Care Teams Nursery Laborer Relationship Specialty Start Date End Date Alexandre Guzmán MD [address] [place] [address] PCP - General FAMILY PRACTICE 05/08/18 Lai Maldonado MD [address] [place] [address] CARDIOVASCULAR DISEASE 08/29/18 02/05/23 London Abdi MD [address] [place] [phone] Consulting Physician CARDIAC ELECTROPHYSIOLOGY 06/04/19 02/05/23 Dottie Kang MD [address] [place] [address] Consulting Physician CARDIOVASCULAR DISEASE 02/03/23 Stanley Yen MD [address] [place] [address] UROLOGY 08/31/23 Indio Alicea MD [address] [place] [address] FAMILY PRACTICE 09/26/23 Kenzie Cadena MD [address] [place] [address] Consulting Physician UROLOGY 02/09/24 documented as of this encounter
--- OUTSIDE RECORDS SUMMARY | 2024-10-30 14:35 | XMS_ITS | Encounter Summary ---
Author Organization [facility] Address On license of [facility] [place] [address] Care Team Providers Care Raw Cheese Worker Name Role Phone Alexandre Guzmán MD Primary Care Provider [phone] Lai Maldonado MD Unavailable Unavailable London Abdi MD Unavailable [phone] Dottie Kang MD Unavailable Stanley Yen MD Unavailable [phone] Indio Alicea MD Unavailable [phone] Kenzie Cadena MD Unavailable Encounter Details Date Type Department Care Team (Late st Contact Info) Description 12/05/2022 Pre-Procedure Call [facility] [place] [address] Dottie Kang MD [address] [place] [address] Social History Tobacco Use Types Packs/Day Years [...] Sex Assigned at Male 08/30/2024 4:08 PM SOUR BLEACHING PLEATER Legal Sex Male 2:22 PM CDT Gender [...] Date Author Status No 05/02/2021 4:00 AM Harish Bridges RN Active documented in this encounter Plan of Treatment Upcoming Encounters Date Type Department Care Team (Late st Contact Info) Description 08/20/2025 9:00 AM SOUR BLEACHING PLEATER [facility]ointment [facility] [place] [address] Dottie Kang MD [address] [place] [address] 08/20/2025 10:00 AM SOUR BLEACHING PLEATER [place] [address] Dottie Kang MD [address] [place] [address] 08/25/2025 9:00 AM SOUR BLEACHING PLEATER Office Visit [facility] [place] [address] Dottie Kang MD [address] [place] [address] documented as of this encounter Visit Diagnoses Not on filedocumented in this encounter Care Teams Raw Cheese Worker Relationship Specialty Start Date End Date Alexandre Guzmán MD [address] [place] [address] PCP - General FAMILY PRACTICE 05/08/18 Lai Maldonado MD [address] [place] [phone] CARDIOVASCULAR DISEASE 08/29/18 02/05/23 London Abdi MD [address] [place] [address] Consulting Physician CARDIAC ELECTROPHYSIOLOGY 06/04/19 02/05/23 Dottie Kang MD [address] [place] [address] Consulting Physician CARDIOVASCULAR DISEASE 02/03/23 Stanley Yen MD [address] [place] [address] UROLOGY 08/31/23 Indio Alicea MD [address] [place] [phone] FAMILY PRACTICE 09/26/23 Kenzie Cadena MD [address] [place] [phone] Consulting Physician UROLOGY 02/09/24 documented as of this encounter
--- OUTSIDE RECORDS SUMMARY | 2024-10-30 14:35 | XMS_ITS ---
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 Past Plans No past plan information found. Radiation Treatments * No radiation treatments are documented for this patient in [facility]. Treatments may have been administered in another system. Treatment Summaries Prostate cancer (CMS/HCC HHS/HCC)* Images from the original note were not included. Survivorship Care Plan Patient Name Pepe Villafana Date of 1945 Plan Completed By Gin Serra RN, MSN, MA, OCN on 12/25/19 Care Team Medical Oncologist Surgeon Manasa Mendoza MD [phone] Radiation Oncologist Primary Care Physician ALEXANDRE LANCASTER MD [phone] Nurse Navigator Gin Serra RN, MSN, MA, OCN [phone] Diagnosis Prostate cancer (CMS/HCC) 12/16/2019 Initial Diagnosis Prostate cancer (CMS/HCC) Age at diagnosis 74-year-old Pertinent past medical history Nonsmoker, high blood pressure, coronary artery disease, and atrial fibrillation. Diagnostic Procedures Prostate cancer (CMS/HCC) 12/16/2019 Pathology FINAL DIAGNOSIS: A-E) RADICAL PROSTATECTOMY, BLADDER NECK MARGIN EXCISION, PERIPROSTATIC FAT EXCISION AND BILATERAL PELVIC LYMPHADENECTOMIES: HISTOLOGIC TYPE OF TUMOR: ACINAR ADENOCARCINOMA. HISTOLOGIC GRADE/PETER PATTERN: 4 + 5 = 9 PERCENTAGE OF PETER PATTERN 4: 70% PERCENTAGE OF PETER PATTERN 3: 20% PERCENTAGE OF PETER PATTERN 5: 10% GRADE GROUP: 5 TUMOR QUANTITATION: PERCENTAGE OF PROSTATE INVOLVED BY TUMOR: APPROXIMATELY 40% TUMOR LATERALITY: BILATERAL EXTRAPROSTATIC EXTENSION: PRESENT, NON-FOCAL. URINARY BLADDER NECK INVASION: PRESENT, BILATERAL. SEMINAL VESICLE INVASION: PRESENT, RIGHT SEMINAL VESICLE. TREATMENT EFFECT: NO KNOWN PRESURGICAL THERAPY. LYMPHOVASCULAR INVASION: NOT IDENTIFIED. PERINEURAL INVASION: NOT IDENTIFIED. MARGINS: INVOLVED BY INVASIVE CARCINOMA. EXTENT OF MARGIN INVOLVEMENT: NON-LIMITED. LINEAR LENGTH OF POSITIVE MARGIN: 10 MM. FOCALITY: MULTIFOCAL. LOCATION OF POSITIVE MARGINS: BILATERAL APICES; RIGHT BLADDER NECK; LEFT POSTERIOR INFERIOR PROSTATE. REGIONAL LYMPH NODES: LEFT PELVIC LYMPH NODES (SPECIMEN D ): TOTAL NUMBER OF LYMPH NODES EXAMINED: 2 TOTAL NUMBER OF LYMPH NODES POSITIVE FOR MALIGNANCY: 0 RIGHT PELVIC LYMPH NODES (SPECIMEN E ): TOTAL NUMBER OF LYMPH NODES EXAMINED: 2 TOTAL NUMBER OF LYMPH NODES POSITIVE FOR MALIGNANCY: 0 ADDITIONAL PATHOLOGIC FINDINGS: PERIPROSTATIC FAT (SPECIMEN A ): - MATURE ADIPOSE TISSUE WITHOUT EVIDENCE OF MALIGNANCY. - NO LYMPH NODES IDENTIFIED. BLADDER NECK MARGIN, EXCISION (SPECIMEN C ): - NEGATIVE FOR MALIGNANCY. PATHOLOGIC STAGE CLASSIFICATION (AJCC 8th Edition): pT3b pN0 Surgery Prostate cancer (CMS/HCC) 12/16/2019 Surgery Procedure: Robotic assisted radical prostatectomy, non-nerve sparing and bilateral pelvic lymph node dissection Surgeon: Manasa Mendoza MD Family History Family History Problem Relation Name Age of Onset Stroke Mother Cancer Father Genetic Testing Chemotherapy and Other Treatments Prostate cancer (CMS/HCC) Treatment on clinical trial? NO Pre-operative chemotherapy administered? NO Radiation Prostate cancer (CMS/HCC) Ongoing Toxicities and Side Effects Prostate cancer ([facility]) Follow-Up Care with Dr. Mendoza as directed. Body Mass Index or BMI is one way to determine if a person???s weight places them at risk for disease such as diabetes, heart disease and cancer. Below 18.5-underweight 18.5-24.9-normal or healthy weight 25-29.9-overweight 30-39.9-obese 40 and above-morbidly obese Your Body mass index is 26.54 kg/m??. Other Concerns and Resources If you are experiencing issues with emotional or mental health, parenting, work/employment, finances, and/or insurance, there may be local and national resources available to assist you. Please discuss this with your oncology team and/or primary care provider for additional information. Below is a general list of resources: Cancer Support Resources at [facility] https://www.[facility]/Medical-Services/Cancer-Center [facility] offers services for lifestyle management for mind-body health. Services range from yoga, individual and group smoking cessation counseling to mind/body skills instruction and mindfulness classes. Call , ext. [phone] for more information. Dietary Services are available from registered dietitians who can perform nutritional assessments and give advice on dietary problems. Call [phone], ext. [phone] for more information. Home Health Services are available after a hospital admission. These individuals can provide comfort in the home setting along with support and education. Call , ext. [phone] for more information. Inpatient Data Management & Case Management Services Inpatient oncology social workers can help with home services, placement of patients, transportation, crisis intervention and communityresources. Care coordination for patients is done through this service, especially in outlying areas. Call , ext [phone] for more information. Nurse Navigator This individual helps guide cancer patients during this challenging and difficult time. She identifies needs and coordinates services of care and designs individualized survivorship care plans after treatment is complete. Call for more information. Radiation Therapy and Day [facility] Radiation Therapy offers state of the art radiation for cancer patients. The Day Hospital offers an outpatient area for chemotherapy, blood infusions, dressing changes and antibiotics. Call or , ext. [phone] for more information. Regional Wound Center The Wound Center heals chronic, non-healing wounds. Call for more information. Resources for Cancer Support [facility] provides care for those who cannot afford to pay through its Laurie Care Program. More information is available at www.[facility]/ [facility]/Laurie-Care.aspx. [facility] provides financial assistance, to those who qualify, regardless of whether [facility] is insured. More information is available at www. [facility].org/Public/FinancialAssistance.aspx. [place] Department of Public Health protects the state's residents and visitors through the prevention and control of disease and injury. Website: http://www.idph.[facility]. ut.us/home.htm. [place] Cancer Society is a national nonprofit organization with programs and services provided through local [place] [employer] offices, as well as its Clinical Navigation program based at [facility] Cancer Mission at [facility]. Websites: www.cancer.org and www.[facility]/cancer/navigator. html. Government Assistance Programs There are several federal and state programs that provide financial assistance to individuals and families. This assistance, known as entitlements, are primarily set up for low-income households, theelderly and the disabled. Each entitlement has eligibility requirements. There are also programs administered through state governments that can help with health-care related needs. Government Assistance Programs include: U.S. Department of Health & Human Services Information on public assistance and food stamps. Check phonebook for your local office. www.hhs.gov. U.S. Administration on Aging Benefits for older adults. 167.805.3727 www.eldercare.gov ([employer] finds resources in your community). Social Security Administration 743-295-4587 www.ssa.gov Centers for Medicare & Medicaid Services 568-315-3678 www.cms.gov National Cancer Mission www.cancer.gov Pharmaceutical Patient Assistance Programs Programs and services offered differ among drug manufacturers but may include: Help with insurance reimbursement. Referrals to co pay relief programs Help with the application process Discounted or free medications for patients who do not qualify for other assistance Partnership for Prescription Assistance (PPA) 350-6-VXW-NOW (820-908-5096) www.pparx.org Insurance Coverage www.[place]covered[place].org To see if the drug company that makes your medication has a patient assistance program, check its web site, ask your doctor or check with the PPA. [facility] has a list of pharmaceutical programs and other resources for financial assistance. People with cancer often need assistance with expenses like transportation, home care and child nutrition manager. A number of nonprofit organizations have useful programs or referral information that may be able to help. Cancer Organizations CancerCare 579-270-YCUE(9748) www.cancercare.org Citizen [place] Cancer Society 697-JJE-5178 www.cancer.org General Organizations [employer] www.komoot.org Community Organizations Check phonebook under social service agencies [employer]ri[employer]-based Organizations Includes [employer] Charities, Den[employer]ational [employer]gl[employer] Alarm Mechanic, [facility] Family Services and others. Check phonebook for listings. Resolved Problems Problem Noted Date Diagnosed Date Resolved Date Preoperative clearance 12/04/201904/24
--- OUTSIDE RECORDS SUMMARY | 2024-10-30 14:36 | XMS_ITS | Encounter Summary ---
Author Organization [facility] Address [facility] [place] [address] Care Team Providers Care Airplane Pilot Name Role Phone Alexandre Guzmán MD Primary Care Provider Dottie Kang MD Unavailable Stanley Yen MD Unavailable [phone] Indio Alicea MD Unavailable [phone] Kenzie Cadena MD Unavailable Encounter Details Date Type Department Care Team (Late st Contact Info) Description 03/21/2023 Hospital Orders Only Dia's Basket Operator Pre/Post [address] [place] [address] Marin Crooks MD [address] [place] [id number] Social History Tobacco Use Types Packs/Day Years [...] Sex Assigned at Male 08/30/2024 4:08 PM JACK WINDER Legal Sex Male 2:22 PM CDT Gender Identity Not on file Sexual Orientation Not on file Occupation Industry Job Start Date Job End Date Not on file Not on file Not on file Not on file documented as of this encounter Functional Status * Question Answer Date of Assessment Author Status Do you have serious difficulty walking or climbing stairs? No 03/21/2023 4:00 PM CDT Selena Rodriguez RN Ac tive * Question Answer Date of Assessment Author Status Do you have difficulty dressing or bathing? No 03/21/2023 4:00 PM CDT Selena Rodriguez R N Active Because of a physical, mental, or emotional condition, do you have difficulty doing errands alone such as visiting a doctor's office or shopping? No 03/21/2023 4:00 PM Selena Lockett RN Act zeeshan * Are you deaf or do you have serious difficulty hearing Answer Date of Assessment Author Status No 03/21/2023 4:00 PM Selena Lockett RN Active * Are you blind or do you have serious difficulty seeing, even when wearing glasses? Answer Date of Assessment Author Status No 03/21/2023 4:00 PM Selena Lockett RN Active * Do you have serious difficulty walking or climbing stairs? Answer Date of Assessment Author Status No 03/21/2023 4:00 PM Selena Lockett RN Active * Do you have difficulty dressing or bathing? Answer Date of Assessment Author Status No 03/21/2023 4:00 PM Selena Lockett RN Active * Because of a physical, mental, or emotional condition, do you have difficulty doing errands alone such as visiting a doctor's office or shopping? Answer Date of Assessment Author Status No 03/21/2023 4:00 PM Selena Lockett RN Active documented as of this encounter Mental Status * Question Answer Entry Date Author Status Because of a physical, mental, or emotional condition, do you have serious difficulty concentrating, remembering, or making decisions? No 03/21/2023 4:00 PM Selena Lockett R N Active * Because of a physical, mental, or emotional condition, do you have serious difficulty concentrating, remembering, or making decisions? Answer Entry Date Author Status No 03/21/2023 4:00 PM Selena Lockett RN Active documented in this encounter Plan of Treatment Upcoming Encounters Date Type Department Care Team (Late st Contact Info) Description 08/20/2025 9:00 AM [address] [facility] [address] [place] [address] Dottie Kang MD [address] [place] [address] 08/20/2025 10:00 AM JACK WINDER Appointment [facility] [address] [place] [address] Dottie Kang MD [address] [place] [address] 08/25/2025 9:00 AM JACK WINDER Office Visit [facility] [address] [place] [id number] Dottie Kang MD [address] [place] [address] documented as of this encounter Goals Goal Patient Goal Type Associated Problems Recent Progress Patient-Stated? Author Safety Patient/family will have appropriate support at home upon discharge Lifestyle No Razia Carmona RN documented as of this encounter Visit Diagnoses Not on filedocumented in this encounter Care Teams Airplane Pilot Relationship Specialty Start Date End Date Alexandre Guzmán MD [address] [place] [phone] PCP - General FAMILY PRACTICE 05/08/18 Dottie Kang MD [address] [place] [address] Consulting Physician CARDIOVASCULAR DISEASE 02/03/23 Stanley Yen MD [address] [place] [address] UROLOGY 08/31/23 Indio Alicea MD [address] [place] [address] FAMILY PRACTICE 09/26/23 Kenzie Cadena MD [address] [place] [address] Consulting Physician UROLOGY 02/09/24 documented as of this encounter
--- OUTSIDE RECORDS SUMMARY | 2024-10-30 14:36 | XMS_ITS | Encounter Summary ---
Author Organization [facility] Address [facility] [place] [address] Care Team Providers Care Putty Tinter Maker Name Role Phone Alexandre Guzmán MD Primary Care Provider [phone] Dottie Kang MD Unavailable Stanley Yen MD Unavailable [phone] Indio Alicea MD Unavailable [phone] Kenzie Cadena MD Unavailable Encounter Details Date Type Department Care Team (Late st Contact Info) Description 04/05/2023 Hospital Follow-up Call [facility] Care Unit [address] [place] [address] Solange Oneil RN Social History Tobacco Use Types Packs/Day [...] place to sleep or slept in a fci (including now)? No 03/22/2023 Sex and Gender Information Value Date Recorded Sex Assigned at Male 08/30/2024 4:08 PM SHOE ASSOCIATE Legal Sex Male 2:22 PM CDT Gender [...] 11:34 AM Kelli Munoz RN Active * Are you blind or [...] Munoz RN Active documented in this encounter Plan of Treatment Upcoming Encounters Date Type Department Care Team (Late st Contact Info) Description 08/20/2025 9:00 AM SHOE ASSOCIATE [facility] [place] [address] Dottie Kang MD [address] [place] [address] 08/20/2025 10:00 AM SHOE ASSOCIATE [facility]ointment [facility] [place] [address] Dottie Kang MD [address] [place] [address] 08/25/2025 9:00 AM SHOE ASSOCIATE Office Visit [facility] [address] Dottie Kang MD [address] [place] [address] documented as of this encounter Goals Goal Patient Goal Type Associated Problems Recent Progress Patient-Stated? Author Safety Patient/family will have appropriate support at home upon discharge Lifestyle No Razia Carmona RN documented as of this encounter Visit Diagnoses Not on filedocumented in this encounter Care Teams Putty Tinter Maker Relationship Specialty Start Date End Date Alexandre Guzmán MD [address] [place] [address] PCP - General [facility] PRACTICE 05/08/18 Dottie Kang MD [address] [place] [address] Consulting Physician CARDIOVASCULAR DISEASE 02/03/23 Stanley Yen MD [address] [place], [place] [phone] UROLOGY 08/31/23 Indio Alicea MD [address] [place] [address] [facility] 09/26/23 Kenzie Cadena MD [address] [place] [phone] Consulting Physician UROLOGY 02/09/24 documented as of this encounter
[2024-10-30] MEDS: LEUPROLIDE ACETATE (ELIGARD) 22.5 MG SYRINGE SUB-Q (14:55)
[2024-10-30 15:05] VITALS: BP 121/79; PULSE 68; RESP 14; O2SAT 97
== END 2024-10-30 13:06 | disposition home or self-care (01) ==
PROVIDERS: PCP Family Medicine; Visit Provider Internal Medicine Hematology
DX: Z51.11 Encounter for antineoplastic chemotherapy (principal); C61 Malignant neoplasm of prostate
CPT/HCPCS: 36415; 82565; 84153; 96374; 96402; G0103; J3489; J9217

== ENCOUNTER 2025-01-28 12:34 | Outpatient (CLI) | payer MEDICARE, OTHER, SELFPAY ==
[2025-01-28 13:01] VITALS: BP 150/70; PULSE 68; RESP 14; TEMP 36.5; O2SAT 97; BMI 25.1
--- OUTSIDE RECORDS SUMMARY | 2025-01-28 13:05 | XMS_ITS | Encounter Summary ---
Author Organization [facility] Address [facility] [place] [address] Care Team Providers Care Inspector Weights And Measures Name Role Phone Alexandre Guzmán MD Primary Care Provider [phone] Dottie Kang MD Unavailable Stanley Yen MD Unavailable Unavailabl e Indio Alicea MD Unavailable [phone] Kenzie Cadena MD Unavailable Encounter Details Date Type Department Care Team (Late st Contact Info) Description 04/05/2023 Hospital Follow-up Call [facility] Cardiovascular Care Unit [address] [place] [address] Solange Oneil RN Social History [...] place to sleep or slept in a fdc (including now)? No 03/22/2023 Sex and Gender Information Value Date Recorded Sex Assigned at Male 08/30/2024 4:08 PM CIGARETTE MAKER Legal Sex Male 2:22 PM CDT Gender [...] st Contact Info) Description 08/20/2025 9:00 AM CIGARETTE MAKER [address] [facility] [address] [place] [address] Dottie Kang MD [address] [place] [address] 08/20/2025 10:00 AM CIGARETTE MAKER [facility]oint[address] [facility] [address] [place] [address] Dottie Kang MD [address] [place] [address] 08/25/2025 9:00 AM CIGARETTE MAKER Office Visit [facility] [address] [place] [address] Dottie Kang MD [address] [place] [address] documented as of this encounter Goals Goal Patient Goal Type Associated Problems Recent Progress Patient-Stated? Author Safety Patient/family will have appropriate support at home upon discharge Lifestyle No Razia Carmona RN documented as of this encounter Visit Diagnoses Not on filedocumented in this encounter Care Teams Inspector Weights And Measures Relationship Specialty Start Date End Date Alexandre Guzmán MD [address] [place] [address] PCP - General FAMILY PRACTICE 05/08/18 Dottie Kang MD [address] [place] [address] Consulting Physician CARDIOVASCULAR DISEASE 02/03/23 Stanley Yen MD [address] [place] [address] UROLOGY 08/31/23 Indio Alicea MD [address] [place] [address] [facility] PR[facility] 09/26/23 Kenzie Cadena MD [address] [place] [address] Consulting Physician UROLOGY 02/09/24 documented as of this encounter
--- OUTSIDE RECORDS SUMMARY | 2025-01-28 13:05 | XMS_ITS | Continuity of Care Document ---
Author Organization [facility] Address [address] [place] [address] Phone Care Team Providers Care Web Press Operator Apprentice Name Role Phone Godfrey MARTE MD, Jarrell Unavailable Unavailable Procedures Procedure Date Medical Records Charge Stent, Intracoronary, 1st Vessel 2010 Left Heart Cath With Cors W/WO LV Out Pt Hosp Visit 2 Advance Directives Directive Yes / No Effective Date File Name No Information Encounters Encounter Description Practice Location Reason(s) For Visit Diagnoses Date Provider Providers Copied on Encounter [facility], [address], [place], [address], [place] tel:[phone] Hemphill CVM No Information 1 Godfrey [facility]ra. [facility] , [address], [place], [place], [id number], [place]. tel:[phone] Out Pt Hosp Visit 2 [facility], [address], [place], [address], [place] tel:[phone] Armando CVM No Information 1 Godfrey [facility], [address], [place], [place], [address], [place]. tel:[phone] Referring Provider: Roger Bui, [address] [place], [address]. tel:[phone] Family History Family Member Type Diagnosis Age At Onset No Information Payers Payer name Insurance type Covered libertarian ID Authoriza tion(s) No Information Social History Type Description Quantity Date Captured Comments Sex Male Smoking Status No Information Chief Complaint And Reason For Visit No Information Reason For Referral Reason For Referral No Information History Of Present Illness Encounter Date Complaint History Of Prese nt Illness No Information Functional Status Date Functional Assessmen t No Information Instructions Date Instruction Additional Infor mation No Information Assessments Type Assessment Date No Information Patient Care Teams Name Effective Dates (start - stop) Status Members No Information
--- OUTSIDE RECORDS SUMMARY | 2025-01-28 13:05 | XMS_ITS | Clinical Summary ---
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 Unstable angina ([facility]) 05/02/2021 Prostate cancer ([facility]) 12/16/2019 Paroxysmal atrial fibrillation ([facility]) 12/04/2019 S/P atrioventricular lance ablation 07/03/2019 New onset atrial fibrillation ([facility]) 05/29/2019 Dizziness 01/16/2019 CAD (coronary artery disease) 01/16/2019 Hypertension, unspecified type 01/16/2019 Hyperlipidemia 01/16/2019 Resolved Problems Problem Noted Date Diagnosed Date Resolved Date Preoperative clearance 12/04/201904/24 Immunizations Immunization Administration Dates Next Due Afluria 36 MONTHS+ [...] place to sleep or slept in a longterm (including now)? No 03/22/2023 Sex and Gender Information Value Date Recorded Sex Assigned at Male 08/30/2024 4:08 PM BOOKKEEPING TEACHER Legal Sex Male 2:22 PM CDT Gender Identity Not on file Sexual Orientation Not on file Occupation Industry Job Start Date Job End Date Not on file Not on file Not on file Not on file Last Filed Vital Signs Vital Sign Reading Time Taken Comments Blood Pressure 134/70 08/26/2024 9:54 AM BOOKKEEPING TEACHER Pulse 78 08/26/2024 9:53 AM BOOKKEEPING TEACHER Temperature 36 C (96.8 F) 02/14/2024 5:28 PM CDT Respiratory Rate 16 08/26/2024 9:53 AM BOOKKEEPING TEACHER Oxygen Saturation 97% 02/14/2024 5:28 PM CDT Inhaled Oxygen Concentration - - Weight 81.6 kg (180 lb) 08/26/2024 9:53 AM BOOKKEEPING TEACHER Height 177.8 cm (5' 10) 08/26/2024 9:53 AM BOOKKEEPING TEACHER Body Mass Index 25.83 08/26/2024 9:53 AM BOOKKEEPING TEACHER Plan of Treatment Upcoming Encounters Date Type Department Care Team (Late st Contact Info) Description 08/20/2025 9:00 AM BOOKKEEPING TEACHER [facility] [facility] [place] [address] Dottie Kang MD [address] [place] [address] 08/20/2025 10:00 AM BOOKKEEPING TEACHER [facility]ointment [facility] [place] [address] Dottie Kang MD [address] [place] [address] 08/25/2025 9:00 AM BOOKKEEPING TEACHER Office Visit [facility] [address] [place] [address] Dottie Kang MD [address] [place] [address] Health Maintenance Due Date Last Done Comments ASCVD Statin 1945 Hepatitis C 1964 DTaP, Tdap and Td Vaccines (1 - Tdap) 1965 Zoster Vaccines (1 of 2) 1996 Annual Medicare Wellness Visit 2011 RSV Immunization or 60+ Years (1 - 1-dose 75+ series) 2021 Pneumococcal Vaccine: 50+ Years (2 of 2 - PCV) 05/03/2022 05/03/2021 ASCVD LDL 03/26/2024 03/26/2023, 04/14, 02/05/2021, Additional history exists COVID-19 Vaccine ( - season) 2024 05/28/2021, 10/23/2020, 10/02/2020 Colorectal Cancer Screening Colonoscopy (10 Years) Discontinued [...] Carmona RN Medical Devices Implanted Type Area Gag Writer Device Identifier Shelf Expiration Date Model / Serial / Lot Balloon Ams Pressure Regulating 61-70cm - [id number] Implanted:Qty: 1 on 02/14/2024 by Kenzie Cadena MD at [facility] Balloon Implant N/A: Pelvis [employer] [id number] 01/02/2029 [id number] / / [id number] Cuff Urethral Ams 800 Occlusive Urinary Control System Inhibizone Silicone Elastomer 4cm Sphincter Sterile - [id number] Implanted:Qty: 1 on 02/14/2024 by Kenzie Cadena MD at [facility] Penile N/A: Urethra [employer] [id number] 10/24/2025 [id number] / / [id number] Pump Control With Iz Ams 800 - [id number] Implanted:Qty: 1 on 02/14/2024 by Kenzie Cadena MD at [facility] Penile N/A: Scrotum [employer] [id number] 12/28/2025 [id number] / / [id number] Kit Accessory Ams 800 - [id number] Implanted:Qty: 1 on 02/14/2024 by Kenzie Cadena MD at [facility] Penile N/A: Abdomen [employer] [id number] 01/17/2029 [id number] / / [id number] Tissue Surgiflo 8ml - Sn/A Implanted:Qty: 1 on 12/16/2019 by Manasa Mendoza MD at [facility] N/A: Prostate [employer] 03/13/2021 [id number] / N/A / [id number] Procedures Procedure Name Priority Date/Time Associated Diagnosis Comments LIPID PANEL Routine 03/26/2023 8:13 AM CDT COLONOSCOPY 08/24/2021 8:49 AM BOOKKEEPING TEACHER from Last 3 Months or Most Recently Relevant to Health Maintenance Results * LIPID PANEL (03/26/2023 8:13 AM CDT) CHOLESTEROL 131 MG/DL 03/26/2023 8:56 AM CDT [facility] Comment:DESIRABLE: <200 TRIGLYCERIDES 118 MG/DL 03/26/2023 8:56 AM CDT [facility] Comment:<150 NORMAL HDL 47 >39 MG/DL 03/26/2023 8:56 AM CDT [facility] LDL (CALCULATED) 60 MG/DL 03/26/20 8:56 AM CDT [facility] Comment:<100 OPTIMAL VLDL CALCULATION 24 MG/DL 03/26/20 8:56 AM CDT [facility] Comment:REFERENCE RANGE NOT ESTABLISHED CHOL/HDL RATIO 2.8 03/26/2023 8:56 AM CDT [facility] Comment:REFERENCE RANGE NOT ESTABLISHED LDL/HDL 1.3 03/26/2023 8:56 AM CDT [facility] Comment:REFERENCE RANGE NOT ESTABLISHED NON HDL CHOLESTEROL 84 MG/DL 03/26/2023 8:56 AM CDT [facility] Comment:REFERENCE RANGE NOT ESTABLISHED 03/26/2023 8:13 AM CDT us Adalid Colon MD LABORATORY Final Resul t [facility] [address] [place] [address], [id number] * COLONOSCOPY (08/24/2021 8:49 AM BOOKKEEPING TEACHER) Indio Alicea MD GI PROCEDURE ORDERABLES Final Result from Last 3 Months or Most Recently Relevant to Health Maintenance Insurance [address] [place] [id number] MEDICARE [employer] MEDICARE [employer] Advance Directives * Full Code (Latest Code [...] 6:57 PM 12/21/2019 4:04 PM Care Teams Electrical Engineer Mep Relationship Specialty Start Date End Date Alexandre Guzmán MD [address] [place] [address] PCP - General FAMILY PRACTICE 05/08/18 Dottie Kang MD [address] [place] [address] Consulting Physician CARDIOVASCULAR DISEASE 02/03/23 Stanley Yen MD [address] [place] [address] UROLOGY 08/31/23 Indio Alicea MD [address] [place] [address] FAMILY PRACTICE 09/26/23 Kenzie Cadena MD [address] [place] [address] Consulting Physician UROLOGY 02/09/24
--- OUTSIDE RECORDS SUMMARY | 2025-01-28 13:05 | XMS_ITS ---
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 Unstable angina ([facility]) 05/02/2021 Prostate cancer ([facility]) 12/16/2019 Paroxysmal atrial fibrillation ([facility]) 12/04/2019 S/P atrioventricular lance ablation 07/03/2019 New onset atrial fibrillation ([facility]) 05/29/2019 Dizziness 01/16/2019 CAD (coronary artery disease) 01/16/2019 Hypertension, unspecified type 01/16/2019 Hyperlipidemia 01/16/2019 Current Treatment and Therapy Plans No current plan information found. Past Treatment and Therapy Plans No past plan information found. Treatment Summaries Prostate cancer ([facility])* Images from the original note were not included. Survivorship Care Plan Patient Name Pepe Villafana Date of 1945 Plan Completed By Gin Serra RN, MSN, MA, OCN on 12/25/19 Care Team Medical Oncologist Surgeon Manasa Mendoza MD [phone] Radiation Oncologist Primary Care Physician ALEXANDRE LANCASTER MD [phone] Nurse Navigator Gin Serra RN, MSN, MA, OCN [phone] Diagnosis Prostate cancer (CMS/HCC) 12/16/2019 Initial Diagnosis [...] LYMPH NODES: LEFT PELVIC LYMPH NODES (SPECIMEN D): TOTAL NUMBER OF LYMPH NODES EXAMINED: 2 TOTAL NUMBER OF LYMPH NODES POSITIVE FOR MALIGNANCY: 0 RIGHT PELVIC LYMPH NODES (SPECIMEN E): TOTAL NUMBER OF LYMPH NODES EXAMINED: 2 TOTAL NUMBER OF LYMPH NODES POSITIVE FOR MALIGNANCY: 0 ADDITIONAL PATHOLOGIC FINDINGS: PERIPROSTATIC FAT (SPECIMEN A): - MATURE ADIPOSE TISSUE WITHOUT EVIDENCE OF MALIGNANCY. - NO LYMPH NODES IDENTIFIED. BLADDER NECK MARGIN, EXCISION (SPECIMEN C): - NEGATIVE FOR MALIGNANCY. PATHOLOGIC STAGE CLASSIFICATION [...] Ongoing Toxicities and Side Effects Prostate cancer (CMS/HCC) Follow-Up Care with Dr. Mendoza as directed. [...] list of resources: Cancer Support Resources at [facility] https://www.[facility]/Medical-Services/Cancer-Center Center for [facility] offers services for lifestyle management for mind-body health. Services range from yoga, individual and group smoking cessation counseling to mind/body skills instruction and mindfulness classes. Call , ext. [phone] for more information. Dietary Services are available from registered dietitians who can perform nutritional assessments and give advice on dietary problems. Call , ext. [phone] for more information. Home Health Services are available after a hospital admission. These individuals can provide comfort in the home setting along with support and education. Call , ext. [phone] for more information. Inpatient Bottle Label Inspector & Case Management Services Inpatient oncology social workers can help with home services, placement of patients, transportation, crisis intervention and communityresources. Care coordination for patients is done through this service, especially in outlying areas. Call , ext [phone] for more information. Nurse Navigator This individual [...] changes and antibiotics. Call or , ext. [phone] for more information. [facility] heals chronic, non-healing wounds. Call for more information. Resources for Cancer Support [facility] provides care for those who cannot afford to pay through its Laurie Care Program. More information is available at www.[facility]/ [facility]/Laurie-Care.aspx. [facility] provides financial assistance, to those who qualify, regardless of whether [facility] is insured. More information is available at www. [facility].org/Public/FinancialAssistance.aspx. [facility] of Public Health protects the state's residents and visitors through the prevention and control of disease and injury. Website: http://www.idph.[facility]. nv.us/home.htm. [employer] [employer] is a national nonprofit organization with programs and services provided through local [place] [employer] offices, as well as its Clinical Navigation program based at [facility] Cancer Newman at [facility]. Websites: www.cancer.org and www.[facility]/cancer/navigator. html. Government Assistance Programs There are several [...] Administration on Aging Benefits for older adults. 121.588.2643 www.eldercare.gov ([employer] Representative finds resources in your community). Social Security Administration 919-715-5708 www.ssa.gov Centers for Medicare & Medicaid Services 866-319-3256 www.cms.gov National Cancer Newman www.cancer.gov Pharmaceutical Patient Assistance Programs Programs and services offered differ among drug manufacturers but may include: Help with insurance reimbursement. Referrals to co pay relief programs Help with the application process Discounted or free medications for patients who do not qualify for other assistance Partnership for Prescription Assistance (PPA) 059-5-SIQ-NOW (148-055-1221) www.pparx.org Insurance Coverage www.getcovered[place].org To see if the drug company that makes your medication has a patient assistance program, check its web site, ask your doctor or check with the PPA. [facility] has a list of pharmaceutical programs and other resources for financial assistance. People with cancer often need assistance with expenses like transportation, home care and director child development center. A number of nonprofit organizations have useful programs or referral information that may be able to help. Cancer Organizations CancerCare 230-421-ABYE(0958) www.cancercare.org [place] [employer] 292-SXH-8059 www.cancer.org General Organizations Signifyd www.[employer] Community Organizations Check phonebook under social service agencies [place]-based Organizations Includes [employer] Char[employer], Syn[employer] Director Home, [facility] Family Services and others. Check phonebook for listings. Resolved Problems Problem Noted Date Diagnosed Date Resolved Date Preoperative clearance 12/04/201904/24
--- OUTSIDE RECORDS SUMMARY | 2025-01-28 13:05 | XMS_ITS | Encounter Summary ---
Author Organization [facility] Address [facility] [place] [address] Care Team Providers Care Manager Semiconductor Name Role Phone Alexandre Guzmán MD Primary Care Provider [phone] Dottie Kang MD Unavailable Stanley Yen MD Unavailable Unavailabl e Indio Alicea MD Unavailable [phone] Kenzie Cadena MD Unavailable Encounter Details Date Type Department Care Team (Late st Contact Info) Description 03/21/2023 Hospital Orders Only [employer] Machinist Pre/Post [address] [place] [address] Marin Crooks MD [address] [place] [id number] Social History Tobacco Use Types Packs/Day Years [...] place to sleep or slept in a jail (including now)? No 03/22/2023 Sex and Gender Information Value Date Recorded Sex Assigned at Male 08/30/2024 4:08 PM CAKE DECORATOR Legal Sex Male 2:22 PM CDT Gender [...] 4:00 PM Selena Lockett RN Active * Question Answer Date of Assessment Author Status Are you deaf or do you have serious difficulty hearing No 03/21/2023 4:00 PM Selena Lockett RN Act zeeshan Are you blind or do you have serious difficulty seeing, even when wearing glasses? No 03/21/2023 4:00 PM Selena Lockett RN Act zeeshan * Calculated C-SSRS Risk Score (Lifetime/Recent) Answer Date of Assessment Author Status No Risk Indicated 03/21/2023 11:23 AM Keyshawn Salazar se, RN Active * [place] Suicide Severity Rating Scale (Screener/Recent Self-Report) Question Answer Date of Assessment Author Status 1. Wish to be (Past 1 Month) No 03/21/2023 11:23 AM Naomi Salazar RN Act zeeshan 2. Non-Specific Active Suicidal Thoughts (Past 1 Month) No 03/21/2023 11:23 AM CDT Naomi Huff RN Act zeeshan 6. Suicidal Behavior (Lifetime) No 03/21/2023 11:23 AM CDT Naomi Huff RN Act zeeshan documented as of this encounter Mental Status * Question Answer Entry Date Author Status Because of a physical, mental, or emotional condition, do you have serious difficulty concentrating, remembering, or making decisions? No 03/21/2023 4:00 PM CDT Selena Rodriguez R N Active * Because of a physical, mental, or emotional condition, do you have serious difficulty concentrating, remembering, or making decisions? Answer Entry Date Author Status No 03/21/2023 4:00 PM CDT Selena Rodriguez RN Active documented in this encounter Plan of Treatment Upcoming Encounters Date Type Department Care Team (Late st Contact Info) Description 08/20/2025 9:00 AM CAKE DECORATOR [address] [facility] [address] [place] [address] Dottie Kang MD [address] [place] [address] 08/20/2025 10:00 AM CAKE DECORATOR [facility]ointment [facility] [address] [place] [address] Dtotie Kang MD [address] [place] [address] 08/25/2025 9:00 AM CAKE DECORATOR Office Visit [facility] [address] [place] [address] Dottie Kang MD [address] [place] [address] documented as of this encounter Goals Goal Patient Goal Type Associated Problems Recent Progress Patient-Stated? Author Safety Patient/family will have appropriate support at home upon discharge Lifestyle No Razia Carmona RN documented as of this encounter Visit Diagnoses Not on filedocumented in this encounter Care Teams Manager Semiconductor Relationship Specialty Start Date End Date Alexandre Guzmán MD [address] [place] [address] PCP - General FAMILY PRACTICE 05/08/18 Dottie Kang MD [address] [place] [address] Consulting Physician CARDIOVASCULAR DISEASE 02/03/23 Stanley Yen MD [address] [place] [address] UROLOGY 08/31/23 Indio Alicea MD [address] [place] [address] FAMILY PRACTICE 09/26/23 Kenzie Cadena MD [address] [place] [address] Consulting Physician UROLOGY 02/09/24 documented as of this encounter
--- OUTSIDE RECORDS SUMMARY | 2025-01-28 13:05 | XMS_ITS | Encounter Summary ---
Author Organization [facility] Address [facility] [place] [address] Care Team Providers Care Mixing Machine Operator Name Role Phone Alexandre Guzmán MD Primary Care Provider [phone] Lai Maldonado MD Unavailable Unavailable London Abdi MD Unavailable [phone] Dottie Kang MD Unavailable Stanley Yen MD Unavailable Unavailabl e Indio Alicea MD Unavailable [phone] Kenzie Cadena MD Unavailable Encounter Details Date Type Department Care Team (Late st Contact Info) Description 12/05/2022 Pre-Procedure Call [facility] [place] [address] Dottie Kang MD [address] [place] [address] Social History Tobacco Use Types [...] Sex Assigned at Male 08/30/2024 4:08 PM PUBLIC HEALTH AIDES TEACHER Legal Sex Male 2:22 PM CDT [...] Assessment Author Status No 05/02/2021 4:00 AM REINALDOT Harish Llamas RN Active * Because of a physical, mental, or emotional condition, do you have difficulty doing errands alone such as visiting a doctor's office or shopping? Answer Date of Assessment Author Status No 05/02/2021 4:00 AM Harish Bridges RN Active documented as of this encounter Mental Status * Because of a physical, mental, or emotional condition, do you have serious difficulty concentrating, remembering, or making decisions? Answer Entry Date Author Status No 05/02/2021 4:00 AM Harish Bridges RN Active documented in this encounter Plan of Treatment Upcoming Encounters Date Type Department Care Team (Late st Contact Info) Description 08/20/2025 9:00 AM PUBLIC HEALTH AIDES TEACHER [facility]ointment [facility] [place] [address] Dottie Kang MD [address] [place] [address] 08/20/2025 10:00 AM PUBLIC HEALTH AIDES TEACHER [facility]ment [facility] [place] [address] Dottie Kang MD [address] [place] [address] 08/25/2025 9:00 AM PUBLIC HEALTH AIDES TEACHER Office Visit [facility] [address] Dottie Kang MD [address] [place] [address] documented as of this encounter Visit Diagnoses Not on filedocumented in this encounter Care Teams Mixing Machine Operator Relationship Specialty Start Date End Date Alexandre Guzmán MD [address] [place] [address] PCP - General FAMILY PRACTICE 05/08/18 Lai Maldonado MD [address] [place] [address] CARDIOVASCULAR DISEASE 08/29/18 02/05/23 London Abdi MD [address] [place] [id number] Consulting Physician CARDIAC ELECTROPHYSIOLOGY 06/04/19 02/05/23 Dottie Kang MD [address] [place] [address] Consulting Physician CARDIOVASCULAR DISEASE 02/03/23 Stanley Yen MD [address] [place] [address] UROLOGY 08/31/23 Indio Alicea MD [address] [place] [address] FAMILY PRACTICE 09/26/23 Kenzie Cadena MD [address] [place] [address] Consulting Physician UROLOGY 02/09/24 documented as of this encounter
--- OUTSIDE RECORDS SUMMARY | 2025-01-28 13:05 | XMS_ITS | Continuity of Care Document ---
Author Organization [facility] Address [address] [place] [address] Phone Care Team Providers Care Campaign Management Specialist Name Role Phone DAMON Hdz APNC, Maribell Unavailable Unavailab le Allergies, Adverse Reactions, Alerts Substance Reaction Status Criticality No Known Allergies Active No Inform ation Medications Medication Instructions Dosage Effective Dates (start - stop) Status Comments Crestor 20 mg tablet Take one tablet by mouth every morning - Active Nitrostat 0.4 mg tab subl 1 tablet SL every 5 minutes as needed for chest pain. limit 3, if no relief go to ER - Active Coreg 12.5 mg tablet Take one tablet by mouth twice per day with food - Active Lisinopril 40 mg tablet Take one tablet by mouth daily - Active Nifedipine xl 30 mg tab er 24 Take one tablet by mouth daily - Active Zetia 10 mg Tablet Take one tablet by mouth daily - Active Plavix 75 mg tablet Take one tablet by mouth daily - Active Procedures Procedure Date Office Visit Established Office Visit Established Bx Prostate; Needle/Bx Prostate; Needle/ punch Office Visi Established Minor 4 Postop F/u Visit Incld Global 4 Office Visit Established Low To Moderate Extracapsular CataraExtracapsular Catara ct Re Extracapsular CataraExtracapsular Catara ct Re Offic/outpt E&m Estab Mod-hi 2 14 Office Visi Established Minor 4 Ophth Serv: Med ExamOphth Serv: Med Exam ; Com Office Visit Established Low To Moderate Myocardial Perfusion Imaging Offic/outpt E&m Estab Mod-hi 2 13 Office Visit Established Low To Moderate Advance Directives Directive Yes / No Effective Date File Name No Information Encounters Encounter Description Practice Location Reason(s) For Visit Diagnoses Date Provider Providers Copied on Encounter [facility], [address] [place] [address], [facility], tel: [phone] [facility] No Information 5 Andreina Maribell. [address] [place] [address], [id number]. tel:[phone] Office Visit Established [facility], [address] [place] [address], [facility], tel: [phone] [facility] Hyperlipidemia Nec/nosCOR ATH UNSP VSL NTV/GFT 5 Andreina Maribell. [address] [place] [address], [id number]. tel:[phone] Office Visit Established [facility], [address] [place] [address], [facility], tel: [phone] [facility] Hyperlipidemia Nec/nosBenign HypertensionCOR ATH UNSP VSL NTV/GFT 5 Andreina Maribell. [address] [place] [address], [id number]. 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 [address] [place] [address], [id number]. tel:[phone] Office Visi Established Minor [facility], [address] [place] [address], [facility], tel: [phone] [facility] Benign Hypertension 4 Andreina Maribell. [address] [place] [address], [id number]. tel:[phone] [facility], [address] [place] [address], [facility], tel: [phone] [facility] Lens Replacement Nec 4 CutLanda. [address], [id number]. tel: [facility], [address] [place] [address], [facility], tel: [phone] [facility] Lens Replacement Nec 4 Mikki Ortega. [address], [facility]. tel: Office Visit Established Low To Moderate [facility], [address] [place] [address], [facility], [place] tel: [phone] [facility] Hyperlipidemia Nec/nosBenign HypertensionCor Athrscl-uns Vessel 4 Andreina Reyna. [address] [place] [address], [id number]. tel: [facility], [address] [place] [address], [facility], tel: [phone] [facility] Senile Nuclear Cataract 4 Mikki Ortega. [address] [place] [address], [facility]. tel: [facility], [address] [place] [address], [facility], tel: [phone] [facility] Lens Replacement Nec 4 Mikki Ortega. [address], [facility]. tel: [facility], [address] [place] [address], [facility], [place] tel: [phone] [facility] Lens Replacement Nec 4 Mikki Ortega. [address] [place] [address], [id number]. tel: [facility], [address] [place] [address], [facility], [place] tel: [phone] [facility] Senile Nuclear Cataract 4 Mikki Ortega. [address], [address]. tel:[phone] Offic/outpt E&m Estab Mod-hi 2 [facility], [address] [place] [address], [facility], [place] tel: [phone] [facility] Hyperlipidemia Nec/nosCataract NosBenign Hypertension 4 Dane Harris. [address] [place], [address]. tel:[phone] Referring Provider: Jordan Martínez, [address], [facility]. tel:[phone] Office Visi Established Minor [facility], [address] [place] [address], [facility], [place] tel: [phone] [facility] Senile Nuclear Cataract 4 Mikki Ortega. [address], [facility]. tel:[phone] Referring Provider: Primo Rich, [address], [facility]. tel:[phone] [facility], [address] [place] [address], [facility], [place] tel: [phone] [facility] Senile Nuclear CataractOpen angle with borderline findings, low [id number] Nos 4 Hari Tillman. [address], [facility]. tel:[phone] Office Visit Established Low To Moderate [facility], [address] [place] [address], [facility], [place] tel: [phone] [facility] Hyperlipidemia Nec/nosCor Athrscl-uns Vessel 3 Andreina Reyna. [address] [place] [address], [id number]. tel:[phone] [facility], [address] [place] [address], [facility], [place] tel:[phone] [facility] Cor Athrscl-uns Vessel 3 Hao Duran. [address] [place] [address], [id number]. tel:[phone] Offic/outpt E&m Estab Mod-hi 2 [facility], [address] [place] [address], [address], tel: [phone] [facility] Hyperlipidemia Nec/nosBenign HypertensionCor Athrscl-uns Vessel 3 Andreina Reyna. [address] [place] [address], [id number]. tel:[phone] Referring Provider: Kimberly Vela, [address] [place], [address]. tel:[phone] Office Visit Established Low To Moderate [facility], [address] [place] [address], [facility], [place] tel: [phone] [facility] Hyperlipidemia Nec/nosBenign HypertensionCor Athrscl-uns Vessel 2 Hao Duran. [address] [place] [address], [id number]. tel:[phone] [facility], [address] [place] [address], [address], [place] tel: [phone] [facility] Cor Athrscl-uns Vessel 2 Hao Duran. [address] [place] [address], [phone]. tel:[phone] [facility], [address] [place] [address], [address], tel: [phone] [facility] Benign HypertensionCor Athrscl-uns Vessel 1 Hao Duran. [address] [place] [address], [id number]. tel:[phone] [facility], [address] [place] [address], [address], [place] tel: [phone] [facility] Benign HypertensionCor Athrscl-uns Vessel 1 Hao Duran. [address] [place] [address], [id number]. tel:[phone] [facility], [address] [place] [address], [address], [place] tel: [phone] [facility] Cor Athrscl-uns Vessel 1 Hao Duran. [address] [place], [place], [id number]. tel:[phone] [facility], [address] [place] [address], [address], [place] tel: [phone] [facility] Pre Procedure Lab ExamCor Athrscl-uns Vessel 1 Hao Duran. [address] [place], [place], [id number]. tel:[phone] [facility], [address] [place] [address], [address], [place] tel: [phone] [facility] Intermed Coronary SyndAthrscl [place] Cor Art 1 Hao Duran. [address] [place], [place], [id number]. tel:[phone] [facility], [address] [place] [address], [address], [place] tel: [phone] [facility] Hypertension Nos 1 Hao Duran. [address] [place] [address], [id number]. tel:[phone] [facility], [address] [place] [address], [address], [place] tel: [phone] [facility] Benign Neoplasm Lg BowelDiverticulosi s Of Colon 7 No Information [facility], [address] [place] [address], [address], [place] tel: [phone] [facility] Benign Neoplasm Lg BowelDiverticulosi s Of Colon 7 No Information [facility], [address] [place] [address], [address], [place] tel:[phone] [facility] Hx Of Colonic Polyps 7 No Information [facility], [address] [place] [address], [address], [place] tel: [phone] [facility] No Information 7 Savita Rios. [address] [place], [place], [id number]. [phone] [facility], [address] [place] [address], [facility], tel: [phone] [facility] Diverticulitis Of Colon 7 No Information [facility], [address] [place] [address], [facility], tel: [phone] [facility] Sprain Of Wrist Nec 4 Jundi Iyad. [address] [place] [address], [id number]. [phone] [facility], [address] [place] [address], [facility], tel: [phone] [facility] Joint Pain-unspec 4 No Information [facility], [address] [place] [address], [facility], tel:[phone] [facility] Oth Cells/casts In Urine Oct--200 4 Jundi Iyad. [address] [place] [address], [id number]. tel:[phone] Family History Family Member Type Diagnosis Age At Onset No Information Payers Payer name Insurance type Covered constitution party ID Authoriza tion(s) No Information Social History Type Description Quantity Date Captured Comments Sex Male Smoking Status No Information Chief Complaint And Reason For Visit No Information History Of Present Illness Encounter Date Complaint History Of Prese nt Illness No Information Instructions Date Instruction Additional Infor mation No Information Assessments Type Assessment Date No Information
[2025-01-28 13:40] LABS: Estimated CRCL calculation 55 ml/min; Estimated Glomerular Filt Rate > 60
[2025-01-28] MEDS: SODIUM CHLORIDE 0.9% IVPB (14:15)
[2025-01-28] MEDS: ZOLEDRONIC ACID IVPB (14:15)
[2025-01-28] MEDS: LEUPROLIDE ACETATE (ELIGARD) 22.5 MG SYRINGE SUB-Q (14:21)
[2025-01-28 14:31] VITALS: BP 149/74; PULSE 68; RESP 16; O2SAT 98
--- NOTE | 2025-01-28 14:42 | PC.NURSE ---
Tolerated Eligard injection or Zoledronic acid infusion well. SEE MAR/patient care notes.
== END 2025-01-28 12:35 | disposition home or self-care (01) ==
PROVIDERS: PCP Family Medicine; Visit Provider Internal Medicine Hematology
DX: Z51.11 Encounter for antineoplastic chemotherapy (principal); C61 Malignant neoplasm of prostate
CPT/HCPCS: 36415; 82565; 96374; 96402; J3489; J9217

== ENCOUNTER 2025-04-30 10:36 | Outpatient (CLI) | payer MEDICARE, OTHER, SELFPAY ==
[2025-04-30 11:09] LABS: Estimated Glomerular Filt Rate > 60
[2025-04-30 11:15] VITALS: BMI 25.1
[2025-04-30 11:20] VITALS: BP 135/75; PULSE 67; RESP 14; TEMP 36.5; O2SAT 98
[2025-04-30 11:43] LABS: Prostate Specific Antigen < 0.1 ng/mL (< OR = 4.0)
[2025-04-30] MEDS: SODIUM CHLORIDE 0.9% IVPB (11:50)
[2025-04-30] MEDS: ZOLEDRONIC ACID IVPB (11:50)
[2025-04-30] MEDS: LEUPROLIDE ACETATE (ELIGARD) 22.5 MG SYRINGE SUB-Q (11:56)
[2025-04-30 12:30] VITALS: BP 128/76; PULSE 76
--- NOTE | 2025-04-30 12:59 | PC.NURSE ---
Tolerated Eligard injection and Zoledronic acid infusion well. SEE MAR/patient care notes
== END 2025-04-30 10:37 | disposition home or self-care (01) ==
PROVIDERS: PCP Family Medicine; Visit Provider Internal Medicine Hematology
DX: Z51.11 Encounter for antineoplastic chemotherapy (principal); C61 Malignant neoplasm of prostate
CPT/HCPCS: 36415; 82565; 84153; 96374; 96402; J3489; J9217

== ENCOUNTER 2025-07-31 11:07 | Outpatient (CLI) | payer MEDICARE, OTHER, SELFPAY ==
[2025-07-31 11:24] VITALS: BMI 24.4
[2025-07-31 11:35] LABS: Estimated CRCL calculation 61 ml/min; Estimated Glomerular Filt Rate > 60
[2025-07-31 11:44] VITALS: BP 143/78; PULSE 72; RESP 14; TEMP 36.6; O2SAT 97
[2025-07-31 12:07] LABS: Prostate Specific Antigen < 0.1 ng/mL (< OR = 4.0)
[2025-07-31] MEDS: LEUPROLIDE ACETATE (ELIGARD) 22.5 MG SYRINGE SUB-Q (12:33)
--- NOTE | 2025-07-31 12:54 | PC.NURSE ---
Patient tolerated Zoledronic Acid infusion and Eligard injection well. See MAR/patietn care notes.
[2025-07-31 12:55] VITALS: BP 136/79; PULSE 76; RESP 14; O2SAT 97
== END 2025-07-31 11:08 | disposition home or self-care (01) ==
PROVIDERS: PCP Family Medicine; Visit Provider Internal Medicine Hematology
DX: Z51.11 Encounter for antineoplastic chemotherapy (principal); C61 Malignant neoplasm of prostate
CPT/HCPCS: 36415; 82565; 84153; 96374; 96402; J3489; J9217